=== PATIENT | female | born 1950 | race Caucasian/White ===

== ENCOUNTER 2019-11-27 20:57 | Inpatient (IN) | payer OTHER, BC ==
[2019-11-27 21:57] LABS: EPITHELIAL CELLS FEW /hpf
[2019-11-27] MEDS ORDERED: morphine CARPU-JECT 4 MG/1 ML DISP.SYRIN IVPUSH ONE ×2 (22:00→23:28)
[2019-11-27] MEDS ORDERED: SODIUM CHLORIDE 1,000 ML IV ONE (22:00)
[2019-11-27] MEDS ORDERED: morphine SULFATE 4 MG/ML VIAL ONE ×2 (22:11→23:29)
[2019-11-27 22:22] LABS: BASO % 0.1 % (0-2.0); EOS % 0.2 % (0-4.5); HEMOGLOBIN 13.2 GM/dl (10.7-15.3); LYMPH % 13.4 % (8-40); MCH 33.3 pg (25.7-33.7); MCHC 34.7 g/dl (32.0-36.0); MEAN CELL VOLUME 95.8 fl (80-96); MEAN PLT VOLUME 7.6 fl (7.5-11.1); MONO % 2.2 % (3.8-10.2); NEUT % 84.1 % (42.8-82.8); PLATELET COUNT 203 K/MM3 (134-434); RBC 3.96 M/mm3 (3.60-5.2); RDW 11.3 % (11.6-15.6); WHITE BLOOD COUNT 10.5 K/mm3 (4.0-10.8)
[2019-11-27 22:31] LABS: ALBUMIN 3.2 g/dl (3.4-5.0); BILIRUBIN,TOTAL 0.9 mg/dl (0.2-1); CALCIUM 8.2 mg/dl (8.5-10); CREATININE 0.8 mg/dl (0.55-1.3); POTASSIUM 3.3 mmol/L (3.5-5.1); TOT PROT 6.1 g/dl (6.4-8.2)
--- NOTE | 2019-11-28 01:18 | PDOC ---
Documentation entered by Eliana Mora SCRIBE, acting as scribe for Chandu Reece MD. Chandu Reece MD: This documentation has been prepared by the Abby serrano Adrianna, SCRIBE, under my direction and personally reviewed by me in its entirety. I confirm that the documentation accurately reflects all work, treatment, procedures, and medical decision making performed by me. History of Present Illness - General Chief Complaint: Nausea/Vomiting Stated Complaint: ABD PAIN & NAUSEA/VOMITING Time Seen by Provider: 11/27/19 21:31 History Source: Patient Exam Limitations: No Limitations - History of Present Illness Initial Comments: The patient is a 69 year old female, with a significant PMH of diverticulosis and hypothyroidism, who presents to the ED for evaluation of abdominal pain for 4 days. Patient complains of abdominal pain, which began at the RLQ and is now felt diffusely. She describes her pain as constant, sharp, and an explosion all over. Patient endorses associated diarrhea, abdominal bloating, nausea, and vomit. PAST MEDICAL HISTORY: diverticulosis and hypothyroidism PAST SURGICAL HISTORY: no significant history FAMILY HISTORY: no pertinent history SOCIAL HISTORY: Pt lives with family and is employed. MEDICATIONS: reviewed ALLERGIES: As per nursing notes ROS General: No fevers or chills, no weakness, no weight loss HEENT: No change in vision. No sore throat,. No ear pain CardioVascular: No chest pain or shortness of breath Respiratory:No cough, or wheezing. Gastrointestinal: +Diffuse abdominal pain. +Abdominal bloating. +nausea + vomiting +diarrhea. No constipation, No rectal bleeding Genitourinary: No dysuria, hematuria, or frequency Musculoskeletal: No joint or muscle pain or swelling Neurologic: No headache, vertigo, dizziness or loss of consciousness Psychiatric: nor depression Skin: No rashes or easy bruising Endocrine: no increased thirst or abnormal weight change Allergic: no skin or latex allergy All other systems reviewed and normal Physical Exam: General: Well-nourished well-developed individual, no acute distress HEENT: +Dry mucous membranes. Neck: Supple, no meningeal signs, no lymphadenopathy Eyes: Pupils equal reactive and round, extraocular motion intact Chest: Nontender to palpation Cardiac: +Tachycardic. S1-S2 normal, regular rhythm, no murmurs rubs or gallops Respiratory: Lungs clear to auscultation bilateral Abdomen: +Slightly distended abdomen. +Decreased bowel sounds. +Diffuse tenderness to palpation, with maximum tenderness at the RLQ. +Guarding. + Rebound. Extremities: Warm, dry, no cyanosis, clubbing, or edema Skin: No rashes Neuro: Alert and oriented x3, nonfocal exam, grossly intact, normal gait Psych: Normal mood and affect Past History - Past Medical History Allergies/Adverse Reactions: Allergies Allergy/AdvReac Type Severity Reaction Status Date / Time No Known Allergies Allergy Verified 11/27/19 20:59 Home Medications: Ambulatory Orders Ibandronate Sodium [Boniva] 150 mg PO MONTHLY 11/27/19 Levothyroxine [Synthroid -] 25 mcg PO DAILY 11/27/19 COPD: No Disorders: Yes (DIVERTICULOSIS) Thyroid Disease: Yes (HYPOTHYROID) - Psycho Social/Smoking Cessation Hx Smoking History: Never smoked Hx Alcohol Use: No Drug/Substance Use Hx: No *Physical Exam - Vital Signs Last Vital Signs Temp Pulse Resp BP Pulse Ox 99.1 F 119 H 18 142/87 98 11/27/19 20:59 11/27/19 20:59 11/27/19 20:59 11/27/19 20:59 11/27/19 20:59 ED Treatment Course - LABORATORY CBC & Chemistry Diagram: 11/27/19 22:00 11/27/19 22:00 - ADDITIONAL ORDERS Additional order review: Laboratory Results 11/27/19 11/27/19 11/27/19 22:00 22:00 21:50 Sodium 134 L Potassium 3.3 L Chloride 100 Carbon Dioxide 28 Anion Gap 6 L BUN 13.0 Creatinine 0.8 Est GFR (CKD-EPI)AfAm 87.80 Est GFR (CKD-EPI)NonAf 75.75 Random Glucose 108 H Lactic Acid 1.1 Calcium 8.2 L Total Bilirubin 0.9 AST 14 L ALT 13 Alkaline Phosphatase 66 Total Protein 6.1 L Albumin 3.2 L TSH 5.49 H Urine Color Yellow Urine Appearance Clear Urine pH 6.0 Urine Protein 2+ H Urine Glucose (UA) Negative Urine Ketones 2+ H Urine Blood 2+ H Urine Nitrite Negative Urine Bilirubin 1+ H Urine Urobilinogen 0.2 Ur Leukocyte Esterase Trace H Urine RBC 5-10 Urine WBC 10-20 Ur Transition Epith Cell Few Urine Bacteria Few 11/27/19 22:00 RBC 3.96 MCV 95.8 MCHC 34.7 RDW 11.3 L MPV 7.6 Neutrophils % 84.1 H Lymphocytes % 13.4 Monocytes % 2.2 L Eosinophils % 0.2 Basophils % 0.1 - RADIOLOGY Radiology Studies Ordered: Category Date Time Status ABDOMEN & PELVIS CT WITH CONTR [CT] Stat CT Scan 11/27/19 21:56 Taken - Medications Given in the ED: ED Medications Discontinued Medications Generic Name Dose Route Start Last Admin Trade Name Freq PRN Reason Stop Dose Admin Sodium Chloride 1,000 mls @ 1,000 mls/hr 11/27/19 22:00 11/27/19 22:13 Normal Saline - IV 11/27/19 22:59 1,000 mls/hr .Q1H ONE Administration Morphine Sulfate 4 mg 11/27/19 22:00 11/27/19 22:13 Morphine Injection - IVPUSH 11/27/19 22:01 4 mg ONCE ONE Administration Morphine Sulfate 4 mg 11/27/19 23:28 11/27/19 23:31 Morphine Injection - IVPUSH 11/27/19 23:29 4 mg ONCE ONE Administration Discharge - Discharge Information Problems reviewed: Yes Clinical Impression/Diagnosis: Dehydration Abdominal pain Qualifiers: Abdominal location: generalized Qualified Code(s): R10.84 - Generalized abdominal pain Nausea & vomiting Qualifiers: Vomiting type: unspecified Vomiting Intractability: non-intractable Qualified Code(s): R11.2 - Nausea with vomiting, unspecified Condition: Good - Admission Yes - Follow up/Referral Referrals: Juanpablo Fritz MD [Primary Care Provider] - - Patient Discharge Instructions - Post Discharge Activity
[2019-11-28] MEDS ORDERED: KCL 10 MEQ IVPB 10 MEQ/100 ML INFUS.BAG IVPB SCH (01:45)
[2019-11-28 02:19] VITALS: BMI 26.4
[2019-11-28] MEDS: SODIUM CHLORIDE 1,000 ML IV SCH (02:25)
[2019-11-28] MEDS: LEVOTHYROXINE NA 25 MCG TABLET (FP) PO SCH (06:35)
[2019-11-28] MEDS ORDERED: SODIUM CHLORIDE 500 ML IV STA ×2 (07:04→09:56)
[2019-11-28 08:45] LABS: CALCIUM 7.7 mg/dl (8.5-10); CREATININE 0.7 mg/dl (0.55-1.3); POTASSIUM 3.7 mmol/L (3.5-5.1)
[2019-11-28 08:58] LABS: BASO % 0.2 % (0-2.0); EOS % 0.3 % (0-4.5); HEMATOCRIT 33.4 % (32.4-45.2); HEMOGLOBIN 11.6 GM/dl (10.7-15.3); LYMPH % 10.7 % (8-40); MCH 33.5 pg (25.7-33.7); MCHC 34.7 g/dl (32.0-36.0); MEAN CELL VOLUME 96.6 fl (80-96); MEAN PLT VOLUME 8.4 fl (7.5-11.1); MONO % 4.1 % (3.8-10.2); NEUT % 84.7 % (42.8-82.8); PLATELET COUNT 170 K/MM3 (134-434); RBC 3.46 M/mm3 (3.60-5.2); RDW 11.5 % (11.6-15.6)
[2019-11-28] MEDS ORDERED: HEPARIN NA (PORCINE) 5,000 UNITS/ML 1ML VIAL SQ SCH (10:00)
--- NOTE | 2019-11-28 11:13 | HP ---
CHIEF COMPLAINT: Abdominal pain, vomiting PCP: HISTORY OF PRESENT ILLNESS: 69 year-old female with a PMH significant for hypothyroidism and diverticulosis who presented to the ED for evaluation of abdominal x 3 days. Initially the pain was around the umbilicus and then moved more to the RLQ. She had several episodes of projectile vomiting. She had several episodes of sweats at night. ER course was notable for: (1) (2) (3) Recent Travel: No PAST MEDICAL HISTORY: Hypothyroidism Diverticulosis PAST SURGICAL HISTORY: Social History: Smoking: no Alcohol: no Drugs: no Allergies No Known Allergies Allergy (Verified 11/27/19 20:59) HOME MEDICATIONS: Home Medications Medication Instructions Recorded Ibandronate Sodium [Boniva] 150 mg PO MONTHLY 11/27/19 Levothyroxine [Synthroid -] 25 mcg PO DAILY 11/27/19 REVIEW OF SYSTEMS CONSTITUTIONAL: +sweats Absent: fever, chills, diaphoresis, generalized weakness, malaise, loss of appetite, weight change HEENT: Absent: rhinorrhea, nasal congestion, throat pain, throat swelling, difficulty swallowing, mouth swelling, ear pain, eye pain, visual changes CARDIOVASCULAR: Absent: chest pain, syncope, palpitations, irregular heart rate, lightheadedness , peripheral edema RESPIRATORY: Absent: cough, shortness of breath, dyspnea with exertion, orthopnea, wheezing, stridor, hemoptysis GASTROINTESTINAL: +abdominal pain, vomiting Absent: abdominal distension, diarrhea, constipation, melena, hematochezia GENITOURINARY: Absent: dysuria, frequency, urgency, hesitancy, hematuria, flank pain, genital pain MUSCULOSKELETAL: Absent: myalgia, arthralgia, joint swelling, back pain, neck pain SKIN: Absent: rash, itching, pallor HEMATOLOGIC/IMMUNOLOGIC: Absent: easy bleeding, easy bruising, lymphadenopathy, frequent infections ENDOCRINE: Absent: unexplained weight gain, unexplained weight loss, heat intolerance, cold intolerance NEUROLOGIC: Absent: headache, focal weakness or paresthesias, dizziness, unsteady gait, seizure, mental status changes, bladder or bowel incontinence PSYCHIATRIC: Absent: anxiety, depression, suicidal or homicidal ideation, hallucinations. PHYSICAL EXAMINATION Vital Signs - 24 hr 11/27/19 11/28/19 11/28/19 20:59 01:17 01:22 Temperature 99.1 F 99.3 F 98.6 F Pulse Rate 119 H 99 H Pulse Rate [ 95 H Radial] Respiratory 18 18 17 Rate Blood Pressure 142/87 93/47 L Blood Pressure 103/61 [Arm] O2 Sat by Pulse 98 99 99 Oximetry (%) 11/28/19 11/28/19 11/28/19 02:18 02:54 06:26 Temperature 98.6 F 99.5 F Pulse Rate 99 H 94 H 93 H Pulse Rate [ Radial] Respiratory 17 18 Rate Blood Pressure 93/47 L 100/48 L 96/43 L Blood Pressure [Arm] O2 Sat by Pulse 96 Oximetry (%) 11/28/19 11/28/19 09:00 10:58 Temperature 98.6 F Pulse Rate 85 Pulse Rate [ Radial] Respiratory 18 18 Rate Blood Pressure 97/57 L Blood Pressure [Arm] O2 Sat by Pulse 96 Oximetry (%) GENERAL: Awake, alert, and fully oriented, in mild distress secondary to abdominal pain HEAD: Normal with no signs of trauma. EYES: Pupils equal, round and reactive to light, extraocular movements intact, sclera anicteric, conjunctiva clear. No lid lag. LUNGS: Breath sounds equal, clear to auscultation bilaterally. No wheezes, and no crackles. No accessory muscle use. HEART: Regular rate and rhythm, normal S1 and S2 ABDOMEN: Exquisitely tender RLQ, guarding, no rebound MUSCULOSKELETAL: Normal range of motion at all joints. No bony deformities or tenderness. No CVA tenderness. UPPER EXTREMITIES: 2+ pulses, warm, well-perfused. No cyanosis. No clubbing. No peripheral edema. LOWER EXTREMITIES: 2+ pulses, warm, well-perfused. No calf tenderness. No peripheral edema. NEUROLOGICAL: Cranial nerves II-XII intact. Normal speech. Laboratory Results - last 24 hr 11/27/19 11/27/19 11/27/19 21:50 22:00 22:00 WBC 10.5 RBC 3.96 Hgb 13.2 Hct 38.0 MCV 95.8 MCH 33.3 MCHC 34.7 RDW 11.3 L Plt Count 203 MPV 7.6 Absolute Neuts (auto) 8.9 Neutrophils % 84.1 H Lymphocytes % 13.4 Monocytes % 2.2 L Eosinophils % 0.2 Basophils % 0.1 Sodium 134 L Potassium 3.3 L Chloride 100 Carbon Dioxide 28 Anion Gap 6 L BUN 13.0 Creatinine 0.8 Est GFR (CKD-EPI)AfAm 87.80 Est GFR (CKD-EPI)NonAf 75.75 Random Glucose 108 H Lactic Acid Calcium 8.2 L Total Bilirubin 0.9 AST 14 L ALT 13 Alkaline Phosphatase 66 Total Protein 6.1 L Albumin 3.2 L Total Amylase Lipase TSH 5.49 H Urine Color Yellow Urine Appearance Clear Urine pH 6.0 Urine Protein 2+ H Urine Glucose (UA) Negative Urine Ketones 2+ H Urine Blood 2+ H Urine Nitrite Negative Urine Bilirubin 1+ H Urine Urobilinogen 0.2 Ur Leukocyte Esterase Trace H Urine RBC 5-10 Urine WBC 10-20 Ur Transition Epith Cell Few Urine Bacteria Few 11/27/19 11/28/19 11/28/19 22:00 07:40 07:40 WBC 8.0 RBC 3.46 L Hgb 11.6 Hct 33.4 MCV 96.6 H MCH 33.5 MCHC 34.7 RDW 11.5 L Plt Count 170 MPV 8.4 Absolute Neuts (auto) 6.8 Neutrophils % 84.7 H Lymphocytes % 10.7 Monocytes % 4.1 Eosinophils % 0.3 Basophils % 0.2 Sodium 135 L Potassium 3.7 Chloride 103 Carbon Dioxide 26 Anion Gap 6 L BUN 11.0 Creatinine 0.7 Est GFR (CKD-EPI)AfAm 103.18 Est GFR (CKD-EPI)NonAf 89.03 Random Glucose 112 H Lactic Acid 1.1 Calcium 7.7 L Total Bilirubin AST ALT Alkaline Phosphatase Total Protein Albumin Total Amylase 33 Lipase 58 L TSH Urine Color Urine Appearance Urine pH Urine Protein Urine Glucose (UA) Urine Ketones Urine Blood Urine Nitrite Urine Bilirubin Urine Urobilinogen Ur Leukocyte Esterase Urine RBC Urine WBC Ur Transition Epith Cell Urine Bacteria ASSESSMENT/PLAN 69 year-old female with a PMH significant for hypothyroidism and diverticulitis , admitted for acute appendicitis with abscess formation. Acute appendicitis with abscess formation --11/28 CTAP: acute appendicitis, small appendicolith 5mm, loculated fluid 2.8 x 1.3cm suspicious for abscess --surgery consult pending --discussed with Dr. Mortensen, communication analyst for IR; asked to be read the measurements over the phone, said collection is about 1 inch and therefore too small to drain; will have Dr. Keenan assess on Saturday morning --afebrile, no leukocytosis, start empiric Zosyn, ID to follow --IV fluids, keep NPO --IV Tylenol, morphine for pain Hypothyroidism --contiue levothyroxine DVT prophylaxis: SCDs Full code. Visit type - Emergency Visit Emergency Visit: Yes ED Registration Date: 11/28/19 Care time: The patient presented to the Emergency Department on the above date and was hospitalized for further evaluation of their emergent condition. - New Patient This patient is new to me today: Yes Date on this admission: 11/29/19 - Critical Care Critical Care patient: No
[2019-11-28] MEDS ORDERED: PIPERACILLIN/TAZOBACTAM 3.375 GM VIAL IVPB ONE (13:39)
[2019-11-28] MEDS ORDERED: DEXTROSE 5%-WATER - 50 ML IVPB ONE (13:39)
[2019-11-28] MEDS ORDERED: PIPERACILLIN/TAZOB 3.375 GM 3.375 GM in DEXTROSE 5%-WATER - 50 ML IVPB SCH ×2 (13:45→22:00)
--- NOTE | 2019-11-28 14:10 | CON.ID ---
Consult Consult Specialty:: infectious - Alcohol/Substance Use Hx Alcohol Use: No - Smoking History Smoking history: Never smoked Home Medications - Allergies Allergies/Adverse Reactions: Allergies Allergy/AdvReac Type Severity Reaction Status Date / Time No Known Allergies Allergy Verified 11/27/19 20:59 - Home Medications Home Medications: Ambulatory Orders Ibandronate Sodium [Boniva] 150 mg PO MONTHLY 11/27/19 Levothyroxine [Synthroid -] 25 mcg PO DAILY 11/27/19 Physical Exam Vital Signs: Vital Signs Temperature 98.6 F 11/28/19 14:05 Pulse Rate 88 11/28/19 14:05 Respiratory Rate 16 11/28/19 14:05 Blood Pressure 109/52 L 11/28/19 14:05 O2 Sat by Pulse Oximetry (%) 99 11/28/19 14:05 Labs: CBC, BMP 11/28/19 07:40 11/28/19 07:40
[2019-11-28] MEDS: ACETAMINOPHEN 1000 MG/100 ML VIAL (NON FORMULARY) IVPB PRN (14:50)
[2019-11-28] MEDS ORDERED: MORPHINE SULFATE 2 MG/ML VIAL IVPUSH PRN (16:06)
[2019-11-28] MEDS ORDERED: PIPERACILLIN/TAZOB 4.5 GM 4.5 GM in DEXTROSE 5%-WATER 100 ML IVPB SCH (18:00)
[2019-11-28] MEDS ORDERED: DEXTROSE 5%-WATER 100 ML IVPB ONE (21:41)
[2019-11-28] MEDS ORDERED: PIPERACILLIN/TAZOBACTAM 4.5 GM VIAL IVPB ONE (21:42)
[2019-11-28] MEDS: PIPERACILLIN/TAZOB 4.5 GM 4.5 GM in DEXTROSE 5%-WATER 100 ML IVPB SCH (21:46)
[2019-11-28] MEDS: morphine CARPU-JECT 2 MG/1 ML DISP.SYRIN IVPUSH PRN (21:57)
[2019-11-29] MEDS ORDERED: DEXTROSE 5%-WATER 100 ML IVPB ONE ×3 (01:23→16:49)
[2019-11-29] MEDS ORDERED: PIPERACILLIN/TAZOBACTAM 4.5 GM VIAL IVPB ONE ×3 (01:23→16:49)
[2019-11-29] MEDS: PIPERACILLIN/TAZOB 4.5 GM 4.5 GM in DEXTROSE 5%-WATER 100 ML IVPB SCH ×3 (01:27→18:19)
[2019-11-29] MEDS: SODIUM CHLORIDE 1,000 ML IV SCH ×2 (01:28→17:02)
[2019-11-29] MEDS: LEVOTHYROXINE NA 25 MCG TABLET (FP) PO SCH (06:38)
[2019-11-29] MEDS: ACETAMINOPHEN 1000 MG/100 ML VIAL (NON FORMULARY) IVPB PRN (06:48)
[2019-11-29] MEDS: morphine CARPU-JECT 2 MG/1 ML DISP.SYRIN IVPUSH PRN ×3 (08:25→14:36)
[2019-11-29 08:57] LABS: BASO % 0.3 % (0-2.0); HEMOGLOBIN 11.6 GM/dl (10.7-15.3); LYMPH % 15.2 % (8-40); MCH 33.1 pg (25.7-33.7); MCHC 34.1 g/dl (32.0-36.0); MEAN CELL VOLUME 97.2 fl (80-96); MEAN PLT VOLUME 8.6 fl (7.5-11.1); NEUT % 78.5 % (42.8-82.8); PLATELET COUNT 205 K/MM3 (134-434); RDW 11.5 % (11.6-15.6); WHITE BLOOD COUNT 7.6 K/mm3 (4.0-10.8)
[2019-11-29 09:14] LABS: ALBUMIN 2.5 g/dl (3.4-5.0); BILIRUBIN,TOTAL 0.8 mg/dl (0.2-1); CALCIUM 8.1 mg/dl (8.5-10); CREATININE 0.8 mg/dl (0.55-1.3); POTASSIUM 3.5 mmol/L (3.5-5.1); TOT PROT 5.3 g/dl (6.4-8.2)
--- NOTE | 2019-11-29 10:19 | CONSULT ---
- Consultation REQUESTING PROVIDER: Marianna Cruz BELL HOLE DIGGER CONSULT REQUEST: We have been asked to surgically evaluate this patient for appendicitis w/an abscess PCP:Lacy Cruz HISTORY OF PRESENT ILLNESS:AKUA who is a 69 y/o female who presented to the [facility] ED 11/27/2019 w/ 72 hours of generalized to RLQ abdominal pain w/ associated nausea and vomiting; she never had this before; she has no other GI/ /[employer] c/o's; she has had colonoscopy w/in the last 5 years; pain was initially at the umbilicus and sharp and worse w/moving around and less w/lying still; it now seems to be less; she has some anorexia but is thirsty; there is no radiation of the pain from the RLQ; she has NOC. PMHx: osteoporosis/thyroid disease PSHx: none Home Medications Medication Instructions Recorded Ibandronate Sodium [Boniva] 150 mg PO MONTHLY 11/27/19 Levothyroxine [Synthroid -] 25 mcg PO DAILY 11/27/19 Allergies Allergy/AdvReac Type Severity Reaction Status Date / Time No Known Allergies Allergy Verified 11/27/19 20:59 REVIEW OF SYSTEMS: CONSTITUTIONAL: Absent: fever, chills, diaphoresis, generalized weakness, malaise, loss of appetite, weight change CARDIOVASCULAR: Absent: chest pain, syncope, palpitations, irregular heart rate, lightheadedness , peripheral edema RESPIRATORY: Absent: cough, shortness of breath, dyspnea with exertion, wheezing, stridor, hemoptysis GASTROINTESTINAL: Present: abdominal pain, abdominal distension, nausea, vomiting, Absent: diarrhea, constipation, melena, hematochezia GENITOURINARY: Absent: dysuria, frequency, urgency, hesitancy, hematuria, flank pain, genital pain MUSCULOSKELETAL: Absent: myalgia, arthralgia, joint swelling, back pain, neck pain SKIN: Absent: rash, itching, pallor HEMATOLOGIC/IMMUNOLOGIC: Absent: easy bleeding, easy bruising, lymphadenopathy NEUROLOGIC: Absent: headache, focal weakness, paresthesias, dizziness, unsteady gait, seizure, mental status changes, bladder or bowel incontinence PSYCHIATRIC: Absent: anxiety, depression, suicidal or homicidal ideation, hallucinations. PHYSICAL EXAM: GENERAL: Awake, alert, and fully oriented, in no acute distress. HEAD: Normal with no signs of trauma. EYES: PERRL, sclera anicteric, conjunctiva clear. NECK: Normal ROM, supple without lymphadenopathy, JVD, or masses. ABDOMEN: Soft, tender RLQ w/guarding; no rebound, not distended, absent bowel sound, no masses. No organomegaly. Rovsings/psoas and obturator signs are present; there is no evidence of an acute surgical abdomen. MUSCULOSKELETAL: Normal ROM at all joints. No bony deformities or tenderness. No CVA tenderness. UPPER EXTREMITIES: 2+ pulses, warm, well-perfused. No cyanosis. Cap refill <2 seconds. No peripheral edema. LOWER EXTREMITIES: 2+ pulses, warm, well-perfused. No calf tenderness. No peripheral edema. NEUROLOGICAL: Normal speech, gait not observed. PSYCH: Cooperative. Good eye contact. Appropriate mood and affect. SKIN: Warm, dry, normal turgor, no rashes or lesions noted. Vital Signs Temperature 97.9 F 11/29/19 04:00 Pulse Rate 77 11/29/19 06:44 Respiratory Rate 16 11/29/19 04:00 Blood Pressure 97/55 L 11/29/19 06:44 O2 Sat by Pulse Oximetry (%) 95 11/29/19 04:00 Lab Results WBC 7.6 K/mm3 (4.0-10.8) 11/29/19 06:00 RBC 3.50 M/mm3 (3.60-5.2) L 11/29/19 06:00 Hgb 11.6 GM/dl (10.7-15.3) 11/29/19 06:00 Hct 34.0 % (32.4-45.2) 11/29/19 06:00 MCV 97.2 fl (80-96) H 11/29/19 06:00 MCHC 34.1 g/dl (32.0-36.0) 11/29/19 06:00 RDW 11.5 % (11.6-15.6) L 11/29/19 06:00 Plt Count 205 K/MM3 (134-434) 11/29/19 06:00 Sodium 140 mmol/L (136-145) 11/29/19 06:00 Potassium 3.5 mmol/L (3.5-5.1) 11/29/19 06:00 Chloride 107 mmol/L (98-107) 11/29/19 06:00 Carbon Dioxide 23 mmol/L (21-32) 11/29/19 06:00 Anion Gap 10 MMOL/L (8-16) 11/29/19 06:00 BUN 10.0 mg/dl (7-18) 11/29/19 06:00 Creatinine 0.8 mg/dl (0.55-1.3) 11/29/19 06:00 Random Glucose 86 mg/dl (74-106) 11/29/19 06:00 Calcium 8.1 mg/dl (8.5-10) L 11/29/19 06:00 CT scan a/p reviewed and c/w acute appendicitis w/an abscess and fecalith(s). IMP: perforated appendicitis w/abscess. PLAN: NPO/IVF/IVABS/IR evaluation for abscess drainage; will f/u; will need interval appendectomy. Donavon Snowden MD FACS
--- NOTE | 2019-11-29 10:54 | PN ---
Physical Exam: SUBJECTIVE: Patient seen and examined OBJECTIVE: Vital Signs Period Temp Pulse Resp BP Sys/Lezama Pulse Ox Last 24 Hr 97.9 F-98.8 F 77-88 16-20 94-113/48-63 95-99 GENERAL: A&Ox3 LUNGS: Breath sounds equal, clear to auscultation bilaterally. No wheezes, and no crackles. No accessory muscle use. HEART: Regular rate and rhythm, normal S1 and S2 ABDOMEN: Exquisitely tender RLQ, guarding, no rebound MUSCULOSKELETAL: Normal range of motion at all joints. No bony deformities or tenderness. No CVA tenderness. UPPER EXTREMITIES: 2+ pulses, warm, well-perfused. No cyanosis. No clubbing. No peripheral edema. LOWER EXTREMITIES: 2+ pulses, warm, well-perfused. No calf tenderness. No peripheral edema. NEUROLOGICAL: Cranial nerves II-XII intact. Normal speech. Laboratory Results - last 24 hr 11/29/19 11/29/19 06:00 06:00 WBC 7.6 RBC 3.50 L Hgb 11.6 Hct 34.0 MCV 97.2 H MCH 33.1 MCHC 34.1 RDW 11.5 L Plt Count 205 MPV 8.6 Absolute Neuts (auto) 5.9 Neutrophils % 78.5 Lymphocytes % 15.2 Monocytes % 5.0 Eosinophils % 1.0 Basophils % 0.3 Sodium 140 Potassium 3.5 Chloride 107 Carbon Dioxide 23 Anion Gap 10 BUN 10.0 Creatinine 0.8 Est GFR (CKD-EPI)AfAm 87.80 Est GFR (CKD-EPI)NonAf 75.75 Random Glucose 86 Calcium 8.1 L Magnesium 2.0 Total Bilirubin 0.8 AST 40 H ALT 28 Alkaline Phosphatase 91 D Total Protein 5.3 L Albumin 2.5 L Active Medications Generic Name Dose Route Start Last Admin Trade Name Freq PRN Reason Stop Dose Admin Acetaminophen 1,000 mg 11/28/19 14:26 11/29/19 06:48 Ofirmev Injection - IVPB 11/29/19 14:26 1,000 mg Q6H PRN Administration PAIN LEVEL 1-5 Sodium Chloride 1,000 mls @ 75 mls/hr 11/28/19 01:30 11/29/19 01:28 Normal Saline - IV 75 mls/hr ASDIR NEHA Administration Piperacillin Sod/Tazobactam 100 mls @ 200 mls/hr 11/28/19 22:00 11/29/19 10: 25 Sod 4.5 gm/ Dextrose IVPB 200 mls/hr Q8H-IV NEHA Administration Protocol Levothyroxine Sodium 37.5 mcg 11/28/19 07:00 11/29/19 06:38 Synthroid - PO 37.5 mcg DAILY@0700 NEHA Administration Morphine Sulfate 2 mg 11/28/19 21:48 11/29/19 08:25 Morphine Injection - IVPUSH 2 mg Q4H PRN Administration PAIN LEVEL 6-10 ASSESSMENT/PLAN: 69 year-old female with a PMH significant for hypothyroidism and diverticulitis , admitted for acute appendicitis with abscess formation. Acute appendicitis with abscess formation --11/28 CTAP: acute appendicitis, small appendicolith 5mm, loculated fluid 2.8 x 1.3cm suspicious for abscess --surgery Dr. Snowden following --on 11/[address] Mortensen, palliative care nurse practitioner for IR; asked to be read the measurements over the phone, said collection is about 1 inch and therefore too small to drain; will have Dr. Keenan assess tomorrow morning --afebrile, no leukocytosis, continue empiric Zosyn, ID Bobde following --IV fluids, keep NPO per surgery --IV Tylenol, morphine for pain Hypothyroidism --contiue levothyroxine DVT prophylaxis: SCDs Dispo: awaiting transfer to [facility] Full code. Visit type - Emergency Visit Emergency Visit: Yes ED Registration Date: 11/28/19 Care time: The patient presented to the Emergency Department on the above date and was hospitalized for further evaluation of their emergent condition. - New Patient This patient is new to me today: No - Critical Care Critical Care patient: No
--- NOTE | 2019-11-29 12:25 | PN ---
Progress Note (short form) - Note Progress Note: Discussed case with Windy Cruz MERCHANDISING REPRESENTATIVE; patient being transferred to [facility] for IR evaluation to see if the appendicitis seen on CT is drainable. Discussed earlier with Dr. Snowden. Will be placed on MERCHANDISING REPRESENTATIVE service in AM. Please reach out to my residents for additional inquiries for the time being as patient arrives here (Dr. Simpson, Dr. De Dios). Thank you. Visit type - Emergency Visit Emergency Visit: Yes ED Registration Date: 11/28/19 Care time: The patient presented to the Emergency Department on the above date and was hospitalized for further evaluation of their emergent condition. - New Patient This patient is new to me today: No - Critical Care Critical Care patient: No
[2019-11-29] MEDS: MORPHINE SULFATE 2 MG/ML VIAL IVPUSH PRN (18:35)
[2019-11-30] MEDS ORDERED: PIPERACILLIN/TAZOBACTAM 4.5 GM VIAL IVPB ONE ×3 (01:22→18:18)
[2019-11-30] MEDS ORDERED: DEXTROSE 5%-WATER 100 ML IVPB ONE ×3 (01:22→18:18)
[2019-11-30] MEDS: PIPERACILLIN/TAZOB 4.5 GM 4.5 GM in DEXTROSE 5%-WATER 100 ML IVPB SCH ×4 (01:31→18:39)
[2019-11-30] MEDS: MORPHINE SULFATE 2 MG/ML VIAL IVPUSH PRN ×4 (01:31→18:34)
[2019-11-30] MEDS: LEVOTHYROXINE NA 25 MCG TABLET (FP) PO SCH (06:02)
[2019-11-30] MEDS: SODIUM CHLORIDE 1,000 ML IV SCH ×2 (10:39→15:38)
[2019-11-30 11:28] LABS: INR 1.1 (0.83-1.09)
--- NOTE | 2019-11-30 12:21 | PN ---
Physical Exam: SUBJECTIVE: Patient seen and examined at the bedside. questions answered. reports right lower abdominal pain/tenderness. OBJECTIVE: Received a microblog that patient will not have a drain placed by IR. length of antibiotic therapy to be determined by ID. ----- Patient is a 69 year-old female with a past medical history of hypothyroidism and diverticulosis who presented to the ED for evaluation of abdominal x 3 days. patient was found to have acute appendicitis on CT scan with a possible small abscess formation. Vital Signs Period Temp Pulse Resp BP Sys/Lezama Pulse Ox Last 24 Hr 98.9 F-99.9 F 76-88 16-20 113-151/55-80 95-98 GENERAL: The patient is awake, alert, and fully oriented, in no acute distress. HEAD: Normal with no signs of trauma. EYES: PERRL, extraocular movements intact, sclera anicteric, conjunctiva clear. No ptosis. ENT: Ears normal, nares patent, oropharynx clear without exudates, moist mucous membranes. NECK: Trachea midline, full range of motion, supple. LUNGS: Breath sounds equal, clear to auscultation bilaterally, no wheezes, no crackles, no accessory muscle use. HEART: Regular rate and rhythm ABDOMEN: tender to right lower quadrant, abdomen soft, non distended EXTREMITIES: no edema. NEUROLOGICAL: Normal speech, gait not observed. Laboratory Results - last 24 hr 11/30/19 11:05 PT with INR 13.00 INR 1.10 H Active Medications Generic Name Dose Route Start Last Admin Trade Name Freq PRN Reason Stop Dose Admin Sodium Chloride 1,000 mls @ 75 mls/hr 11/29/19 15:38 11/30/19 10:39 Normal Saline - IV 75 mls/hr ASDIR NEHA Administration Piperacillin Sod/Tazobactam 100 mls @ 200 mls/hr 11/29/19 18:00 11/30/19 10: 39 Sod 4.5 gm/ Dextrose IVPB 200 mls/hr Q8H-IV NEHA Administration Protocol Levothyroxine Sodium 37.5 mcg 11/30/19 07:00 11/30/19 06:02 Synthroid - PO Not Given DAILY@0700 NEHA Morphine Sulfate 2 mg 11/29/19 15:38 11/30/19 06:30 Morphine Sulfate IVPUSH 2 mg Q4H PRN Administration PAIN LEVEL 6-10 ASSESSMENT/PLAN: Problem List - Problems (1) Appendicitis with abscess Assessment/Plan: Per Dr. Snowden, patient with acute appendicitis with an abscess and fecalith perforated appencdicitis with abscess. Per IR, no drainable abscess seen on IV Zosyn per ID. Maintain NPO, continue IVF. Code(s): K35.33 - ACUTE APPENDICITIS WITH PERF AND LOC PERITONITIS, WITH ABSCS (2) Abdominal pain Assessment/Plan: abdominal tenderness isolated to right lower quadrant Code(s): R10.9 - UNSPECIFIED ABDOMINAL PAIN Qualifiers: Abdominal location: generalized Qualified Code(s): R10.84 - Generalized abdominal pain (3) Dehydration Assessment/Plan: on ivf Code(s): E86.0 - DEHYDRATION (4) Nausea & vomiting Assessment/Plan: resolved Code(s): R11.2 - NAUSEA WITH VOMITING, UNSPECIFIED Qualifiers: Vomiting type: unspecified Vomiting Intractability: non-intractable Qualified Code(s): R11.2 - Nausea with vomiting, unspecified (5) DVT prophylaxis Assessment/Plan: heparin Code(s): Z29.9 - ENCOUNTER FOR PROPHYLACTIC MEASURES, UNSPECIFIED Visit type - Emergency Visit Emergency Visit: Yes ED Registration Date: 11/28/19 Care time: The patient presented to the Emergency Department on the above date and was hospitalized for further evaluation of their emergent condition. - New Patient This patient is new to me today: Yes Date on this admission: 11/30/19 - Critical Care Critical Care patient: No - Discharge Referral Referred to [facility] Med P.C.: No
[2019-11-30 13:21] LABS: BASO % 0.6 % (0-2.0); EOS % 1.3 % (0-4.5); HEMATOCRIT 35.7 % (32.4-45.2); HEMOGLOBIN 12.3 GM/dL (10.7-15.3); LYMPH % 18.1 % (8-40); MCH 33.2 pg (25.7-33.7); MCHC 34.5 g/dl (32.0-36.0); MEAN CELL VOLUME 96.2 fl (80-96); MEAN PLT VOLUME 8.3 fl (7.5-11.1); MONO % 5.5 % (3.8-10.2); NEUT % 74.5 % (42.8-82.8); PLATELET COUNT 250 K/MM3 (134-434); RBC 3.71 M/mm3 (3.60-5.2); RDW 12.4 % (11.6-15.6); WHITE BLOOD COUNT 8.3 K/mm3 (4.0-10.0)
[2019-11-30 14:00] LABS: ALBUMIN 2.6 g/dl (3.4-5.0); BILIRUBIN,TOTAL 0.8 mg/dL (0.2-1); BLOOD UREA NITROGEN 10.7 mg/dL (7-18); CALCIUM 8.5 mg/dL (8.5-10.1); CREATININE 0.7 mg/dL (0.55-1.3); POTASSIUM 3.4 mmol/L (3.5-5.1); TOT PROT 5.9 g/dl (6.4-8.2)
[2019-11-30] MEDS ORDERED: KCL 10 MEQ IVPB 10 MEQ/100 ML INFUS.BAG IVPB SCH (14:15)
--- NOTE | 2019-11-30 14:27 | PN ---
Progress Note (short form) - Note Progress Note: General Surgery: Pt states that she is passing flatus. No BM since when she had diarrhea. States that she has pain to RLQ with movement. Vital Signs Period Temp Pulse Resp BP Sys/Lezama Pulse Ox Last 24 Hr 98.9 F-99.9 F 76-88 18-20 117-151/55-80 98 GEN: A&0X3, NAD ABD: soft, RLQ tenderness/ rebound with palpation CBC, BMP 11/30/19 12:40 11/30/19 12:40 CT Scan: 2.8 by 1.3 cm fluid collection/abscess Ap: 69 yo female with perforated appendix, small collection Collection non amenable to drainage in IR Continue NPO/ IV fluids IV antibiotics D/w Dr. Snowden, surgery to follow the patient
--- NOTE | 2019-11-30 16:30 | PN ---
Progress Note (short form) - Note Progress Note: Attending Surgeon c/o RLQ pain VSS AF Tmax. 99.9 abdo-soft; localized RLQ tenderness only WBC-normal IMP: appendicitis w/abscess PLAN: Continue present tx.; collection is not amenable to IRD after review br Dr. Shlomo Snowden MD FACS
[2019-11-30] MEDS ORDERED: ACETAMINOPHEN 1000 MG/100 ML VIAL (NON FORMULARY) IVPB ONE (21:02)
[2019-11-30] MEDS: HEPARIN NA (PORCINE) 5,000 UNITS/ML 1ML VIAL SQ SCH (21:31)
[2019-12-01] MEDS: MORPHINE SULFATE 2 MG/ML VIAL IVPUSH PRN ×2 (00:59→06:24)
[2019-12-01] MEDS ORDERED: PIPERACILLIN/TAZOBACTAM 4.5 GM VIAL IVPB ONE ×3 (01:03→17:58)
[2019-12-01] MEDS ORDERED: DEXTROSE 5%-WATER 100 ML IVPB ONE ×3 (01:04→17:58)
[2019-12-01] MEDS: PIPERACILLIN/TAZOB 4.5 GM 4.5 GM in DEXTROSE 5%-WATER 100 ML IVPB SCH ×3 (01:05→18:01)
[2019-12-01] MEDS: LEVOTHYROXINE NA 25 MCG TABLET (FP) PO SCH (06:20)
--- NOTE | 2019-12-01 08:37 | PN ---
Progress Note (short form) - Note Progress Note: General Surgery: Pt states that she is passing flatus. Still having RLQ pain which is relieved by medication. Vital Signs Period Temp Pulse Resp BP Sys/Lezama Pulse Ox Last 24 Hr 96.8 F-100.5 F 75-90 18-20 119-133/51-71 98 GEN: A&0X3, NAD ABD: soft, RLQ tenderness/ rebound with palpation CBC, BMP 12/01/19 09:40 12/01/19 08:30 Ap: 69 yo female with perforated appendix, small collection Continue NPO/ IV fluids. IV antibiotics D/w Dr. Snowden, surgery to follow the patient
[2019-12-01 09:31] LABS: ALBUMIN 2.4 g/dl (3.4-5.0); BILIRUBIN,TOTAL 0.8 mg/dL (0.2-1); BLOOD UREA NITROGEN 9.6 mg/dL (7-18); CALCIUM 8.4 mg/dL (8.5-10.1); CREATININE 0.6 mg/dL (0.55-1.3); MAGNESIUM 1.8 mg/dL (1.8-2.4); POTASSIUM 3.9 mmol/L (3.5-5.1); TOT PROT 5.8 g/dl (6.4-8.2)
[2019-12-01 10:06] LABS: BASO % 0.6 % (0-2.0); HEMATOCRIT 35.2 % (32.4-45.2); HEMOGLOBIN 12.1 GM/dL (10.7-15.3); LYMPH % 15.9 % (8-40); MCH 33.1 pg (25.7-33.7); MCHC 34.4 g/dl (32.0-36.0); MEAN CELL VOLUME 96.2 fl (80-96); MEAN PLT VOLUME 8.1 fl (7.5-11.1); NEUT % 75.5 % (42.8-82.8); PLATELET COUNT 302 K/MM3 (134-434); RBC 3.65 M/mm3 (3.60-5.2); RDW 12.4 % (11.6-15.6); WHITE BLOOD COUNT 9.9 K/mm3 (4.0-10.0)
--- NOTE | 2019-12-01 10:43 | PN ---
Physical Exam: SUBJECTIVE: Patient seen and examined at the bedside. feels well today, wants to eat. denies any further abdominal pain. OBJECTIVE: Patient is a 69 year-old female with a past medical history of hypothyroidism and diverticulosis who presented to the ED for evaluation of abdominal x 3 days. patient was found to have acute appendicitis on CT scan with a possible small abscess formation. She was evaluated by IR and no drain was recommended at this time. She remains NPO per surgery. Vital Signs Period Temp Pulse Resp BP Sys/Lezama Pulse Ox Last 24 Hr 96.8 F-100.5 F 75-90 18-20 119-133/51-71 98 GENERAL: The patient is awake, alert, and fully oriented, in no acute distress. HEAD: Normal with no signs of trauma. EYES: PERRL, extraocular movements intact, sclera anicteric, conjunctiva clear. No ptosis. ENT: Ears normal, nares patent, oropharynx clear without exudates, moist mucous membranes. NECK: Trachea midline, full range of motion, supple. LUNGS: Breath sounds equal, clear to auscultation bilaterally, no wheezes, no crackles, no accessory muscle use. HEART: Regular rate and rhythm ABDOMEN: non-tender to right lower quadrant, abdomen soft, non distended EXTREMITIES: no edema. NEUROLOGICAL: Normal speech, gait not observed. Laboratory Results - last 24 hr 11/30/19 11/30/19 11/30/19 11:05 12:40 12:40 WBC 8.3 Corrected WBC (auto) RBC 3.71 Hgb 12.3 Hct 35.7 MCV 96.2 H MCH 33.2 MCHC 34.5 RDW 12.4 Plt Count 250 MPV 8.3 Absolute Neuts (auto) 6.2 Neutrophils % 74.5 Lymphocytes % 18.1 Monocytes % 5.5 Eosinophils % 1.3 Basophils % 0.6 Nucleated RBC % 0 Platelet Estimate Platelet Comment PT with INR 13.00 INR 1.10 H Sodium 141 Potassium 3.4 L Chloride 108 H Carbon Dioxide 24 Anion Gap 10 BUN 10.7 Creatinine 0.7 Est GFR (CKD-EPI)AfAm 103.18 Est GFR (CKD-EPI)NonAf 89.03 Random Glucose 77 Calcium 8.5 Magnesium 2.0 Total Bilirubin 0.8 AST 15 ALT 22 Alkaline Phosphatase 100 Total Protein 5.9 L Albumin 2.6 L 12/01/19 12/01/19 12/01/19 08:30 08:30 09:40 WBC Cancelled 9.9 Corrected WBC (auto) Cancelled RBC Cancelled 3.65 Hgb Cancelled 12.1 Hct Cancelled 35.2 MCV Cancelled 96.2 H MCH Cancelled 33.1 MCHC Cancelled 34.4 RDW Cancelled 12.4 Plt Count Cancelled 302 D MPV Cancelled 8.1 Absolute Neuts (auto) Cancelled 7.5 Neutrophils % Cancelled 75.5 Lymphocytes % Cancelled 15.9 Monocytes % Cancelled 7.0 Eosinophils % Cancelled 1.0 Basophils % Cancelled 0.6 Nucleated RBC % Cancelled 0 Platelet Estimate Cancelled Platelet Comment Cancelled PT with INR INR Sodium 140 Potassium 3.9 Chloride 109 H Carbon Dioxide 18 L Anion Gap 13 BUN 9.6 Creatinine 0.6 Est GFR (CKD-EPI)AfAm 108.55 Est GFR (CKD-EPI)NonAf 93.66 Random Glucose 63 L Calcium 8.4 L Magnesium 1.8 Total Bilirubin 0.8 AST 24 ALT 18 Alkaline Phosphatase 97 Total Protein 5.8 L Albumin 2.4 L Active Medications Generic Name Dose Route Start Last Admin Trade Name Freq PRN Reason Stop Dose Admin Heparin Sodium (Porcine) 5,000 unit 11/30/19 22:00 11/30/19 21:31 Heparin - SQ 5,000 unit BID NEHA Administration Sodium Chloride 1,000 mls @ 75 mls/hr 11/29/19 15:38 11/30/19 15:38 Normal Saline - IV Not Given ASDIR NEHA Piperacillin Sod/Tazobactam 100 mls @ 200 mls/hr 11/29/19 18:00 12/01/19 01: 05 Sod 4.5 gm/ Dextrose IVPB 200 mls/hr Q8H-IV NEHA Administration Protocol Levothyroxine Sodium 37.5 mcg 11/30/19 07:00 12/01/19 06:20 Synthroid - PO Not Given DAILY@0700 NEHA Morphine Sulfate 2 mg 11/29/19 15:38 12/01/19 06:24 Morphine Sulfate IVPUSH 2 mg Q4H PRN Administration PAIN LEVEL 6-10 ASSESSMENT/PLAN: Problem List - Problems (1) Appendicitis with abscess Assessment/Plan: Patient with acute appendicitis with an abscess and fecalith/perforated appencdicitis with abscess. Per IR, no drainable abscess seen on IV Zosyn per ID. Maintain NPO, advance diet per surgery. continue IVF. Code(s): K35.33 - ACUTE APPENDICITIS WITH PERF AND LOC PERITONITIS, WITH ABSCS (2) Abdominal pain Assessment/Plan: abdominal resolved Code(s): R10.9 - UNSPECIFIED ABDOMINAL PAIN Qualifiers: Abdominal location: generalized Qualified Code(s): R10.84 - Generalized abdominal pain (3) Dehydration Assessment/Plan: on ivf Code(s): E86.0 - DEHYDRATION (4) Nausea & vomiting Assessment/Plan: resolved Code(s): R11.2 - NAUSEA WITH VOMITING, UNSPECIFIED Qualifiers: Vomiting type: unspecified Vomiting Intractability: non-intractable Qualified Code(s): R11.2 - Nausea with vomiting, unspecified (5) DVT prophylaxis Assessment/Plan: heparin Code(s): Z29.9 - ENCOUNTER FOR PROPHYLACTIC MEASURES, UNSPECIFIED Visit type - Emergency Visit Emergency Visit: Yes ED Registration Date: 11/28/19 Care time: The patient presented to the Emergency Department on the above date and was hospitalized for further evaluation of their emergent condition. - New Patient This patient is new to me today: No - Critical Care Critical Care patient: No - Discharge Referral Referred to [facility] Med P.C.: No
[2019-12-01] MEDS: HEPARIN NA (PORCINE) 5,000 UNITS/ML 1ML VIAL SQ SCH ×2 (11:04→21:49)
[2019-12-01] MEDS: SODIUM CHLORIDE 1,000 ML IV SCH ×2 (15:38→21:54)
[2019-12-02] MEDS ORDERED: PIPERACILLIN/TAZOBACTAM 4.5 GM VIAL IVPB ONE ×3 (01:15→16:41)
[2019-12-02] MEDS ORDERED: DEXTROSE 5%-WATER 100 ML IVPB ONE ×3 (01:15→16:41)
[2019-12-02] MEDS: PIPERACILLIN/TAZOB 4.5 GM 4.5 GM in DEXTROSE 5%-WATER 100 ML IVPB SCH ×3 (01:20→17:34)
[2019-12-02] MEDS: LEVOTHYROXINE NA 25 MCG TABLET (FP) PO SCH (06:02)
[2019-12-02 10:40] LABS: BASO % 0.3 % (0-2.0); EOS % 0.9 % (0-4.5); HEMATOCRIT 34.5 % (32.4-45.2); HEMOGLOBIN 11.9 GM/dL (10.7-15.3); LYMPH % 16.3 % (8-40); MCH 32.7 pg (25.7-33.7); MCHC 34.6 g/dl (32.0-36.0); MEAN CELL VOLUME 94.6 fl (80-96); MEAN PLT VOLUME 8.2 fl (7.5-11.1); MONO % 6.1 % (3.8-10.2); NEUT % 76.4 % (42.8-82.8); PLATELET COUNT 294 K/MM3 (134-434); RBC 3.65 M/mm3 (3.60-5.2); RDW 12.4 % (11.6-15.6); WHITE BLOOD COUNT 8.8 K/mm3 (4.0-10.0)
[2019-12-02] MEDS: HEPARIN NA (PORCINE) 5,000 UNITS/ML 1ML VIAL SQ SCH ×2 (10:41→21:15)
[2019-12-02 11:06] LABS: ALBUMIN 2.6 g/dl (3.4-5.0); BILIRUBIN,TOTAL 0.8 mg/dL (0.2-1); CALCIUM 8.8 mg/dL (8.5-10.1); CREATININE 0.7 mg/dL (0.55-1.3); MAGNESIUM 1.8 mg/dL (1.8-2.4); POTASSIUM 3.4 mmol/L (3.5-5.1); TOT PROT 6.2 g/dl (6.4-8.2)
--- NOTE | 2019-12-02 11:17 | PN ---
Progress Note (short form) - Note Progress Note: General Surgery: Pt states that she is passing flatus and had a BM. Feels much better today. Vital Signs Period Temp Pulse Resp BP Sys/Lezama Pulse Ox Last 24 Hr 96.8 F-100.5 F 75-90 18-20 119-133/51-71 98 GEN: A&0X3, NAD ABD: soft, non-distended, mild RLQ pain to palpation CBC, BMP 12/02/19 09:53 12/02/19 09:53 Ap: 69 yo female with perforated appendix, small collection May begin clears this am, plan for repeat CT scan prior to discharge /saturday D/w Dr. Snowden, surgery to follow the patient
[2019-12-02] MEDS: SODIUM CHLORIDE 1,000 ML IV SCH ×2 (13:12→17:33)
[2019-12-02] MEDS ORDERED: POTASSIUM CHLORIDE TABS 20 MEQ TABLET.ER (FP) PO ONE (14:40)
--- NOTE | 2019-12-02 16:02 | PN ---
Physical Exam: SUBJECTIVE: Patient seen and examined at the bedside. reports two loose bms today, denies watery diarrhea. tolerating clears. no further abdominal pain. OBJECTIVE: Patient is a 69 year-old female with a past medical history of hypothyroidism and diverticulosis who presented to the ED for evaluation of abdominal x 3 days. patient was found to have acute appendicitis on CT scan with a possible small abscess formation. She was evaluated by IR and no drain was recommended at this time. Patient followed by surgery and currently tolerating a clear liquid diet. Vital Signs Period Temp Pulse Resp BP Sys/Lezama Pulse Ox Last 24 Hr 98.5 F-99.5 F 77-91 18-18 112-140/56-76 94-97 GENERAL: The patient is awake, alert, and fully oriented, in no acute distress. HEAD: Normal with no signs of trauma. EYES: PERRL, extraocular movements intact, sclera anicteric, conjunctiva clear. No ptosis. ENT: Ears normal, nares patent, oropharynx clear without exudates, moist mucous membranes. NECK: Trachea midline, full range of motion, supple. LUNGS: Breath sounds equal, clear to auscultation bilaterally, no wheezes HEART: Regular rate and rhythm ABDOMEN: abdomen soft, non distended, no further abdominal pain EXTREMITIES: no edema. NEUROLOGICAL: Normal speech, gait not observed. Laboratory Results - last 24 hr 12/02/19 12/02/19 09:53 09:53 WBC 8.8 RBC 3.65 Hgb 11.9 Hct 34.5 MCV 94.6 MCH 32.7 MCHC 34.6 RDW 12.4 Plt Count 294 MPV 8.2 Absolute Neuts (auto) 6.8 Neutrophils % 76.4 Lymphocytes % 16.3 Monocytes % 6.1 Eosinophils % 0.9 Basophils % 0.3 Nucleated RBC % 0 Sodium 140 Potassium 3.4 L Chloride 105 Carbon Dioxide 25 Anion Gap 10 BUN 8.0 Creatinine 0.7 Est GFR (CKD-EPI)AfAm 103.18 Est GFR (CKD-EPI)NonAf 89.03 Random Glucose 170 H Calcium 8.8 Magnesium 1.8 Total Bilirubin 0.8 AST 16 ALT 21 Alkaline Phosphatase 114 Total Protein 6.2 L Albumin 2.6 L Active Medications Generic Name Dose Route Start Last Admin Trade Name Freq PRN Reason Stop Dose Admin Heparin Sodium (Porcine) 5,000 unit 11/30/19 22:00 12/02/19 10:41 Heparin - SQ 5,000 unit BID NEHA Administration Sodium Chloride 1,000 mls @ 75 mls/hr 11/29/19 15:38 12/02/19 13:12 Normal Saline - IV 75 mls/hr ASDIR NEHA Administration Piperacillin Sod/Tazobactam 100 mls @ 200 mls/hr 11/29/19 18:00 12/02/19 10: 42 Sod 4.5 gm/ Dextrose IVPB 200 mls/hr Q8H-IV NEHA Administration Protocol Levothyroxine Sodium 37.5 mcg 11/30/19 07:00 12/02/19 06:02 Synthroid - PO Not Given DAILY@0700 NEHA Morphine Sulfate 2 mg 11/29/19 15:38 12/01/19 06:24 Morphine Sulfate IVPUSH 2 mg Q4H PRN Administration PAIN LEVEL 6-10 ASSESSMENT/PLAN: Problem List - Problems (1) Appendicitis with abscess Assessment/Plan: Patient with acute appendicitis with an abscess and fecalith/perforated appencdicitis with abscess. Per IR, no drainable abscess seen on IV Zosyn per ID. Maintain NPO, advance diet per surgery. continue IVF. Code(s): K35.33 - ACUTE APPENDICITIS WITH PERF AND LOC PERITONITIS, WITH ABSCS (2) Abdominal pain Assessment/Plan: abdominal pain resolved Code(s): R10.9 - UNSPECIFIED ABDOMINAL PAIN Qualifiers: Abdominal location: generalized Qualified Code(s): R10.84 - Generalized abdominal pain (3) Dehydration Assessment/Plan: on clears. d/c ivf Code(s): E86.0 - DEHYDRATION (4) Nausea & vomiting Assessment/Plan: resolved Code(s): R11.2 - NAUSEA WITH VOMITING, UNSPECIFIED Qualifiers: Vomiting type: unspecified Vomiting Intractability: non-intractable Qualified Code(s): R11.2 - Nausea with vomiting, unspecified (5) DVT prophylaxis Assessment/Plan: heparin Code(s): Z29.9 - ENCOUNTER FOR PROPHYLACTIC MEASURES, UNSPECIFIED Visit type - Emergency Visit Emergency Visit: Yes ED Registration Date: 11/28/19 Care time: The patient presented to the Emergency Department on the above date and was hospitalized for further evaluation of their emergent condition. - New Patient This patient is new to me today: No - Critical Care Critical Care patient: No - Discharge Referral Referred to [facility] Med P.C.: No
[2019-12-03] MEDS ORDERED: PIPERACILLIN/TAZOBACTAM 4.5 GM VIAL IVPB ONE ×3 (02:20→18:22)
[2019-12-03] MEDS ORDERED: DEXTROSE 5%-WATER 100 ML IVPB ONE ×3 (02:20→18:22)
[2019-12-03] MEDS: PIPERACILLIN/TAZOB 4.5 GM 4.5 GM in DEXTROSE 5%-WATER 100 ML IVPB SCH ×3 (02:28→18:45)
[2019-12-03] MEDS: LEVOTHYROXINE NA 25 MCG TABLET (FP) PO SCH (06:47)
--- NOTE | 2019-12-03 09:58 | PN ---
Progress Note (short form) - Note Progress Note: General Surgery: Pt states that she is passing flatus and had a BM and this am. Tolerated clears. Vital Signs Period Temp Pulse Resp BP Sys/Lezama Pulse Ox Last 24 Hr 98.1 F-99.0 F 75-90 18-20 117-135/56-77 96-97 GEN: A&0X3, NAD ABD: soft, non-distended, non-tender Ap: 69 yo female with perforated appendix, small collection Continue clears today plan for CT scan tomorrow, ordered by the medical team D/w Dr. Snowden
[2019-12-03] MEDS: HEPARIN NA (PORCINE) 5,000 UNITS/ML 1ML VIAL SQ SCH ×2 (10:18→21:24)
[2019-12-03 10:24] LABS: BASO % 0.5 % (0-2.0); EOS % 1.4 % (0-4.5); HEMATOCRIT 37.6 % (32.4-45.2); HEMOGLOBIN 12.9 GM/dL (10.7-15.3); MCH 32.8 pg (25.7-33.7); MCHC 34.3 g/dl (32.0-36.0); MEAN CELL VOLUME 95.4 fl (80-96); MEAN PLT VOLUME 8.3 fl (7.5-11.1); MONO % 5.4 % (3.8-10.2); NEUT % 73.7 % (42.8-82.8); PLATELET COUNT 381 K/MM3 (134-434); RBC 3.94 M/mm3 (3.60-5.2); RDW 12.6 % (11.6-15.6); WHITE BLOOD COUNT 8.3 K/mm3 (4.0-10.0)
[2019-12-03 10:49] LABS: ALBUMIN 2.8 g/dl (3.4-5.0); BILIRUBIN,TOTAL 0.4 mg/dL (0.2-1); BLOOD UREA NITROGEN 4.7 mg/dL (7-18); CREATININE 0.9 mg/dL (0.55-1.3); MAGNESIUM 1.9 mg/dL (1.8-2.4); POTASSIUM 3.4 mmol/L (3.5-5.1); TOT PROT 6.7 g/dl (6.4-8.2)
[2019-12-03] MEDS ORDERED: POTASSIUM CHLORIDE TABS 20 MEQ TABLET.ER (FP) PO ONE (11:04)
--- NOTE | 2019-12-03 11:05 | PN ---
Physical Exam: SUBJECTIVE: Patient sitting up in bed, feels well today, denies any abdominal pain, no nausea or vomiting. had a bm today. OBJECTIVE: repeat abd/pelvis ct for a.m. , npo at midnight. ------- Patient is a 69 year-old female with a past medical history of hypothyroidism and diverticulosis who presented to the ED for evaluation of abdominal x 3 days. patient was found to have acute appendicitis on CT scan with a possible small abscess formation. She was evaluated by IR and no drain was recommended at this time. Patient followed by surgery and currently tolerating a clear liquid diet. Patient for a repeat abd/pelvic CT to further evaluate appendix/ abscess in a.m. Vital Signs Period Temp Pulse Resp BP Sys/Lezama Pulse Ox Last 24 Hr 98.1 F-99.0 F 75-90 18-20 117-135/56-77 96 GENERAL: The patient is awake, alert, and fully oriented, in no acute distress. sitting up in bed. HEAD: Normal with no signs of trauma. EYES: PERRL, extraocular movements intact, sclera anicteric, conjunctiva clear. No ptosis. ENT: Ears normal, nares patent, oropharynx clear without exudates, moist mucous membranes. NECK: Trachea midline, full range of motion, supple. LUNGS: breathing easy and unlabored on room air. ABDOMEN: abdomen soft, non distended, no further abdominal pain - had bm today EXTREMITIES: no edema. NEUROLOGICAL: Normal speech, gait not observed. Laboratory Results - last 24 hr 12/02/19 12/03/19 12/03/19 09:53 09:30 09:30 WBC 8.3 RBC 3.94 Hgb 12.9 Hct 37.6 MCV 95.4 MCH 32.8 MCHC 34.3 RDW 12.6 Plt Count 381 D MPV 8.3 Absolute Neuts (auto) 6.1 Neutrophils % 73.7 Lymphocytes % 19.0 Monocytes % 5.4 Eosinophils % 1.4 Basophils % 0.5 Nucleated RBC % 0 Sodium 140 140 Potassium 3.4 L 3.4 L Chloride 105 108 H Carbon Dioxide 25 24 Anion Gap 10 8 BUN 8.0 4.7 L Creatinine 0.7 0.9 Est GFR (CKD-EPI)AfAm 103.18 76.14 Est GFR (CKD-EPI)NonAf 89.03 65.70 Random Glucose 170 H 155 H Calcium 8.8 9.0 Magnesium 1.8 1.9 Total Bilirubin 0.8 0.4 AST 16 20 ALT 21 25 Alkaline Phosphatase 114 109 Total Protein 6.2 L 6.7 Albumin 2.6 L 2.8 L Active Medications Generic Name Dose Route Start Last Admin Trade Name Freq PRN Reason Stop Dose Admin Heparin Sodium (Porcine) 5,000 unit 11/30/19 22:00 12/03/19 10:18 Heparin - SQ 5,000 unit BID NEHA Administration Piperacillin Sod/Tazobactam 100 mls @ 200 mls/hr 11/29/19 18:00 12/03/19 10: 18 Sod 4.5 gm/ Dextrose IVPB 200 mls/hr Q8H-IV NEHA Administration Protocol Levothyroxine Sodium 25 mcg 12/03/19 07:00 12/03/19 06:47 Synthroid - PO 25 mcg DAILY@0700 NEHA Administration Morphine Sulfate 2 mg 11/29/19 15:38 12/01/19 06:24 Morphine Sulfate IVPUSH 2 mg Q4H PRN Administration PAIN LEVEL 6-10 Potassium Chloride 40 meq 12/03/19 11:04 K-Dur - PO 12/03/19 11:05 ONCE ONE ASSESSMENT/PLAN: Problem List - Problems (1) Appendicitis with abscess Assessment/Plan: Patient presented with an acute appendicitis with an abscess and fecalith/ perforated appencdicitis with abscess. Per IR, no drainable abscess seen on IV Zosyn 4.5 per ID. On clears and tolerating diet without abdominal pain or discomfort. For repeat abdominal abd/ct tomorrow to further evaluate. NPO at midnight. Code(s): K35.33 - ACUTE APPENDICITIS WITH PERF AND LOC PERITONITIS, WITH ABSCS (2) Abdominal pain Assessment/Plan: abdominal pain resolved Code(s): R10.9 - UNSPECIFIED ABDOMINAL PAIN Qualifiers: Abdominal location: generalized Qualified Code(s): R10.84 - Generalized abdominal pain (3) Dehydration Assessment/Plan: on clears. d/c ivf Code(s): E86.0 - DEHYDRATION (4) Nausea & vomiting Assessment/Plan: resolved Code(s): R11.2 - NAUSEA WITH VOMITING, UNSPECIFIED Qualifiers: Vomiting type: unspecified Vomiting Intractability: non-intractable Qualified Code(s): R11.2 - Nausea with vomiting, unspecified (5) DVT prophylaxis Assessment/Plan: heparin bid early ambulation incentive spirometer Code(s): Z29.9 - ENCOUNTER FOR PROPHYLACTIC MEASURES, UNSPECIFIED Visit type - Emergency Visit Emergency Visit: Yes ED Registration Date: 11/28/19 Care time: The patient presented to the Emergency Department on the above date and was hospitalized for further evaluation of their emergent condition. - New Patient This patient is new to me today: No - Critical Care Critical Care patient: No - Discharge Referral Referred to [facility] Med P.C.: No
--- NOTE | 2019-12-03 11:36 | PN ---
Progress Note, Physician History of Present Illness: patient stable improving transfered to elnora - Current Medication List Current Medications: Active Medications Heparin Sodium (Porcine) (Heparin -) 5,000 unit SQ BID [facility] Last Admin: 12/03/19 10:18 Dose: 5,000 unit Piperacillin Sod/Tazobactam (Sod 4.5 gm/ Dextrose) 100 mls @ 200 mls/hr IVPB Q8H-IV NEHA; Protocol Last Admin: 12/03/19 10:18 Dose: 200 mls/hr Levothyroxine Sodium (Synthroid -) 25 mcg PO DAILY@0700 [facility] Last Admin: 12/03/19 06:47 Dose: 25 mcg Morphine Sulfate (Morphine Sulfate) 2 mg IVPUSH Q4H PRN PRN Reason: PAIN LEVEL 6-10 Last Admin: 12/01/19 06:24 Dose: 2 mg - Objective Vital Signs: Vital Signs Temperature 98.7 F 12/03/19 09:43 Pulse Rate 90 12/03/19 09:43 Respiratory Rate 20 12/03/19 09:43 Blood Pressure 117/77 12/03/19 09:43 O2 Sat by Pulse Oximetry (%) 96 12/02/19 21:00 Constitutional: Yes: No Distress, Calm Cardiovascular: Yes: S1, S2 Respiratory: Yes: Regular, CTA Bilaterally Gastrointestinal: Yes: Normal Bowel Sounds, Soft Musculoskeletal: Yes: WNL Extremities: Yes: WNL Neurological: Yes: Alert, Oriented Psychiatric: Yes: Alert, Oriented Labs: CBC, BMP 12/03/19 09:30 12/03/19 09:30 INR, PTT INR 1.10 (0.83-1.09) H 11/30/19 11:05 Assessment/Plan Problem List - Problems (1) Appendicitis with abscess Code(s): K35.33 - ACUTE APPENDICITIS WITH PERF AND LOC PERITONITIS, WITH ABSCS (2) Abdominal pain Code(s): R10.9 - UNSPECIFIED ABDOMINAL PAIN Qualifiers: Abdominal location: generalized Qualified Code(s): R10.84 - Generalized abdominal pain (3) Dehydration Code(s): E86.0 - DEHYDRATION (4) Nausea & vomiting Code(s): R11.2 - NAUSEA WITH VOMITING, UNSPECIFIED Qualifiers: Vomiting type: unspecified Vomiting Intractability: non-intractable Qualified Code(s): R11.2 - Nausea with vomiting, unspecified plan will see what ir does continue abx rest as per the team npo
--- NOTE | 2019-12-03 12:04 | PN ---
Progress Note, Physician History of Present Illness: stable no new issues abd pain better repeat ct scan for tomorrow - Current Medication List Current Medications: Active Medications Heparin Sodium (Porcine) (Heparin -) 5,000 unit SQ BID [facility] Last Admin: 12/03/19 10:18 Dose: 5,000 unit Piperacillin Sod/Tazobactam (Sod 4.5 gm/ Dextrose) 100 mls @ 200 mls/hr IVPB Q8H-IV NEHA; Protocol Last Admin: 12/03/19 10:18 Dose: 200 mls/hr Levothyroxine Sodium (Synthroid -) 25 mcg PO DAILY@0700 [facility] Last Admin: 12/03/19 06:47 Dose: 25 mcg Morphine Sulfate (Morphine Sulfate) 2 mg IVPUSH Q4H PRN PRN Reason: PAIN LEVEL 6-10 Last Admin: 12/01/19 06:24 Dose: 2 mg - Objective Vital Signs: Vital Signs Temperature 98.7 F 12/03/19 09:43 Pulse Rate 90 12/03/19 09:43 Respiratory Rate 12/03/19 09:43 Blood Pressure 117/77 12/03/19 09:43 O2 Sat by Pulse Oximetry (%) 96 12/02/19 21:00 Constitutional: Yes: No Distress, Calm Cardiovascular: Yes: Regular Rate and Rhythm Respiratory: Yes: Regular, CTA Bilaterally Gastrointestinal: Yes: Normal Bowel Sounds, Soft Musculoskeletal: Yes: WNL Extremities: Yes: WNL Neurological: Yes: Alert, Oriented Psychiatric: Yes: Alert, Oriented Labs: CBC, BMP 12/03/19 09:30 12/03/19 09:30 INR, PTT INR 1.10 (0.83-1.09) H 11/30/19 11:05 Assessment/Plan Problem List - Problems (1) Appendicitis with abscess Code(s): K35.33 - ACUTE APPENDICITIS WITH PERF AND LOC PERITONITIS, WITH ABSCS (2) Abdominal pain Code(s): R10.9 - UNSPECIFIED ABDOMINAL PAIN Qualifiers: Abdominal location: generalized Qualified Code(s): R10.84 - Generalized abdominal pain (3) Dehydration Code(s): E86.0 - DEHYDRATION (4) Nausea & vomiting Code(s): R11.2 - NAUSEA WITH VOMITING, UNSPECIFIED Qualifiers: Vomiting type: unspecified Vomiting Intractability: non-intractable Qualified Code(s): R11.2 - Nausea with vomiting, unspecified plan continue abx await for repeat ct scan rest as per the team
[2019-12-03] MEDS ORDERED: oxyCODONE HCL 5 MG TABLET PO PRN ×2 (14:18)
[2019-12-03] MEDS: ACETAMINOPHEN 325 MG TABLET (FP) PO PRN (16:55)
[2019-12-04] MEDS ORDERED: PIPERACILLIN/TAZOBACTAM 4.5 GM VIAL IVPB ONE ×3 (01:13→18:14)
[2019-12-04] MEDS ORDERED: DEXTROSE 5%-WATER 100 ML IVPB ONE ×3 (01:14→18:14)
[2019-12-04] MEDS: PIPERACILLIN/TAZOB 4.5 GM 4.5 GM in DEXTROSE 5%-WATER 100 ML IVPB SCH ×3 (02:17→18:35)
[2019-12-04] MEDS: LEVOTHYROXINE NA 25 MCG TABLET (FP) PO SCH (06:06)
[2019-12-04] MEDS: HEPARIN NA (PORCINE) 5,000 UNITS/ML 1ML VIAL SQ SCH ×2 (10:30→22:26)
[2019-12-04 13:35] LABS: BASO % 0.4 % (0-2.0); EOS % 0.7 % (0-4.5); HEMATOCRIT 34.4 % (32.4-45.2); HEMOGLOBIN 11.9 GM/dL (10.7-15.3); MCH 32.7 pg (25.7-33.7); MCHC 34.5 g/dl (32.0-36.0); MEAN CELL VOLUME 94.9 fl (80-96); MEAN PLT VOLUME 8.2 fl (7.5-11.1); MONO % 5.6 % (3.8-10.2); NEUT % 69.3 % (42.8-82.8); PLATELET COUNT 357 K/MM3 (134-434); RBC 3.62 M/mm3 (3.60-5.2); RDW 12.4 % (11.6-15.6)
[2019-12-04 14:00] LABS: ALBUMIN 2.6 g/dl (3.4-5.0); BILIRUBIN,TOTAL 0.3 mg/dL (0.2-1); CALCIUM 8.6 mg/dL (8.5-10.1); CREATININE 0.7 mg/dL (0.55-1.3); MAGNESIUM 1.8 mg/dL (1.8-2.4); POTASSIUM 3.5 mmol/L (3.5-5.1); TOT PROT 6.1 g/dl (6.4-8.2)
--- NOTE | 2019-12-04 14:16 | PN ---
Progress Note, Physician History of Present Illness: stable ct scan with abscess abscess drained eddie pus - Current Medication List Current Medications: Active Medications Acetaminophen (Tylenol -) 650 mg PO Q6H PRN PRN Reason: pain 1-3 or fever Last Admin: 12/03/19 16:55 Dose: 650 mg Heparin Sodium (Porcine) (Heparin -) 5,000 unit SQ BID [facility] Last Admin: 12/04/19 10:30 Dose: 5,000 unit Piperacillin Sod/Tazobactam (Sod 4.5 gm/ Dextrose) 100 mls @ 200 mls/hr IVPB Q8H-IV [facility]; Protocol Last Admin: 12/04/19 10:30 Dose: 200 mls/hr Levothyroxine Sodium (Synthroid -) 25 mcg PO DAILY@0700 [facility] Last Admin: 12/04/19 06:06 Dose: Not Given Oxycodone HCl (Roxicodone -) 5 mg PO Q4H PRN PRN Reason: PAIN LEVEL 1-5 Oxycodone HCl (Roxicodone -) 10 mg PO Q4H PRN PRN Reason: PAIN LEVEL 6-10 - Objective Vital Signs: Vital Signs Temperature 98.9 F 12/04/19 12:46 Pulse Rate 74 12/04/19 12:46 Respiratory Rate 20 12/04/19 12:46 Blood Pressure 125/71 12/04/19 12:46 O2 Sat by Pulse Oximetry (%) 100 12/04/19 12:17 Constitutional: Yes: No Distress, Calm Cardiovascular: Yes: S1, S2 Respiratory: Yes: Regular, CTA Bilaterally Gastrointestinal: Yes: Normal Bowel Sounds, Soft, Other (drain in place) Musculoskeletal: Yes: WNL Extremities: Yes: WNL Neurological: Yes: Alert, Oriented Psychiatric: Yes: Alert, Oriented Labs: CBC, BMP 12/04/19 12:55 12/04/19 12:55 INR, PTT INR 1.10 (0.83-1.09) H 11/30/19 11:05 Assessment/Plan Problem List - Problems (1) Appendicitis with abscess Code(s): K35.33 - ACUTE APPENDICITIS WITH PERF AND LOC PERITONITIS, WITH ABSCS (2) Abdominal pain Code(s): R10.9 - UNSPECIFIED ABDOMINAL PAIN Qualifiers: Abdominal location: generalized Qualified Code(s): R10.84 - Generalized abdominal pain (3) Dehydration Code(s): E86.0 - DEHYDRATION (4) Nausea & vomiting Code(s): R11.2 - NAUSEA WITH VOMITING, UNSPECIFIED Qualifiers: Vomiting type: unspecified Vomiting Intractability: non-intractable Qualified Code(s): R11.2 - Nausea with vomiting, unspecified plan continue abx await for repeat cx rest as per the team
[2019-12-04] MEDS ORDERED: POTASSIUM CHLORIDE TABS 20 MEQ TABLET.ER (FP) PO ONE (14:24)
--- NOTE | 2019-12-04 15:04 | PN ---
Progress Note, Physician History of Present Illness: Patient seen and examined at bedside. Endorses feeling a bit down. Patient started crying because of how the ID doctor spoke with her. Later admitted her father in this hospital October 02, 2019 which was 2 months ago and it is also making her emotional. Requesting change in ID service. Patient had repeat CT scan today which showed increasing size of abscess from 2.8x1.3cm to 2.9x4.2cm and is now drainable and patient went for drainage this AM with IR. - Current Medication List Current Medications: Active Medications Acetaminophen (Tylenol -) 650 mg PO Q6H PRN PRN Reason: pain 1-3 or fever Last Admin: 12/03/19 16:55 Dose: 650 mg Heparin Sodium (Porcine) (Heparin -) 5,000 unit SQ BID [facility] Last Admin: 12/04/19 10:30 Dose: 5,000 unit Piperacillin Sod/Tazobactam (Sod 4.5 gm/ Dextrose) 100 mls @ 200 mls/hr IVPB Q8H-IV [facility]; Protocol Last Admin: 12/04/19 10:30 Dose: 200 mls/hr Levothyroxine Sodium (Synthroid -) 25 mcg PO DAILY@0700 [facility] Last Admin: 12/04/19 06:06 Dose: Not Given Oxycodone HCl (Roxicodone -) 5 mg PO Q4H PRN PRN Reason: PAIN LEVEL 1-5 Oxycodone HCl (Roxicodone -) 10 mg PO Q4H PRN PRN Reason: PAIN LEVEL 6-10 - Objective Vital Signs: Vital Signs Temperature 98.9 F 12/04/19 12:46 Pulse Rate 74 12/04/19 12:46 Respiratory Rate 20 12/04/19 12:46 Blood Pressure 125/71 12/04/19 12:46 O2 Sat by Pulse Oximetry (%) 100 12/04/19 12:17 Constitutional: Yes: Well Nourished, Other (crying) Eyes: Yes: Conjunctiva Clear, EOM Intact HENT: Yes: Atraumatic Neck: Yes: Supple Cardiovascular: Yes: Regular Rate and Rhythm Respiratory: Yes: WNL, CTA Bilaterally Gastrointestinal: Yes: Normal Bowel Sounds, Soft, Other (DON drain in place.). No: Tenderness Extremities: Yes: WNL Edema: No Psychiatric: Yes: Other (crying see subjective) Labs: CBC, BMP 12/04/19 12:55 12/04/19 12:55 INR, PTT INR 1.10 (0.83-1.09) H 11/30/19 11:05 Problem List - Problems (1) Abdominal pain Assessment/Plan: acute appendicitis which is perforated. now s/p drainage this AM after repeat CTAP showed increasing abscess size. continue Zosyn per ID Patient requesting change in ID service. Discussed with Dr. Shelton who's group will see patient in consultation. No fever or leukocytosis Pain control advance to regular diet Code(s): R10.9 - UNSPECIFIED ABDOMINAL PAIN Qualifiers: Abdominal location: generalized Qualified Code(s): R10.84 - Generalized abdominal pain (2) Appendicitis with abscess Code(s): K35.33 - ACUTE APPENDICITIS WITH PERF AND LOC PERITONITIS, WITH ABSCS (3) DVT prophylaxis Assessment/Plan: heparin subcu Code(s): Z29.9 - ENCOUNTER FOR PROPHYLACTIC MEASURES, UNSPECIFIED (4) Dehydration Assessment/Plan: resolved Code(s): E86.0 - DEHYDRATION (5) Nausea & vomiting Assessment/Plan: resolved Code(s): R11.2 - NAUSEA WITH VOMITING, UNSPECIFIED Qualifiers: Vomiting type: unspecified Vomiting Intractability: non-intractable Qualified Code(s): R11.2 - Nausea with vomiting, unspecified (6) Hypokalemia Assessment/Plan: will give 40meq of PO potassium chloride Code(s): E87.6 - HYPOKALEMIA (7) Hypothyroidism Assessment/Plan: continue synthroid Code(s): E03.9 - HYPOTHYROIDISM, UNSPECIFIED Visit type - Emergency Visit Emergency Visit: Yes ED Registration Date: 11/28/19 Care time: The patient presented to the Emergency Department on the above date and was hospitalized for further evaluation of their emergent condition. - New Patient This patient is new to me today: Yes Date on this admission: 12/04/19 - Critical Care Critical Care patient: No
[2019-12-04] MEDS: ACETAMINOPHEN 325 MG TABLET (FP) PO PRN ×2 (15:36→22:24)
--- NOTE | 2019-12-04 17:58 | PN ---
Progress Note (short form) - Note Progress Note: Second ID consult requested by family 69 yo otherwise healthy female from home admitted 2/7 from home with 3 day history of RLQ pain- started as vomiting, then progressed to RLE pain some chills at home now on day #[address] scan on admission acute appendicitis with abscess she was transferred to [facility] for drainage, IR could not perform ct scan repeated today and she underwent drainage of the abscess 10 cc of pus aspirated, DON placed to continue zosyn day #7 f/u culture results d/w patient and at the bedside d/w dr desir esr/crp in am
[2019-12-05] MEDS ORDERED: PIPERACILLIN/TAZOBACTAM 4.5 GM VIAL IVPB ONE ×3 (02:46→16:56)
[2019-12-05] MEDS ORDERED: DEXTROSE 5%-WATER 100 ML IVPB ONE ×3 (02:47→16:56)
[2019-12-05] MEDS: PIPERACILLIN/TAZOB 4.5 GM 4.5 GM in DEXTROSE 5%-WATER 100 ML IVPB SCH ×3 (02:59→18:04)
--- NOTE | 2019-12-05 06:23 | CONS ---
INFECTIOUS DISEASE CONSULTATION DATE OF CONSULTATION: 12/04/2019 I was asked by Dr. Marlow to assume ID care for this at the patient's request. HISTORY: This is a 69-year-old woman who presented to the emergency room on the with complaints of 3 days of abdominal pain. She had originally started on Saturday with vomiting with some right lower quadrant discomfort. The vomiting resolved, and she continued to have right lower quadrant pain that worsened. She had some chills at night and some sweats. She presented with these complaints to the ER, and she had a CAT scan that showed acute appendicitis with abscess. She was seen by Surgery, and the decision was made to transfer her from [place] to [facility] for IR drainage. IR drainage was not felt to be amenable at that time. She was treated with piperacillin/tazobactam, and CAT scan was repeated today. She was now noted to have a large collection that could be drained. She underwent IR drainage this morning with 10 mL of pus removed. A J-P drain has been placed and has drained 40 mL today. She has no complaints of fevers or chills. She has been afebrile since admission. PAST MEDICAL HISTORY: Notable for a recent diagnosis of hypothyroidism. She has been started on some thyroid medicine by Dr. Fritz this fall. Her past medical history is, otherwise, unremarkable. She has been hospitalized for childbirth, which were all normal spontaneous vaginal deliveries. Otherwise, she has not been hospitalized. There is no history of any antibiotic use. SOCIAL HISTORY: No history of cigarette, alcohol, or substance use. She is . She lives with her . She is retired. ALLERGIES: No known drug allergies. MEDICATIONS: At home include Boniva once a month and Synthroid. REVIEW OF SYSTEMS: As per HPI. She has had no appetite since admission and has been eating poorly. PHYSICAL EXAMINATION: General: She is awake and alert. Vital Signs: Temperature is 98.6, pulse is 79, blood pressure 128/62, respiratory rate is 20, saturating 96% on room air. HEENT: She is normocephalic. Her eyes are anicteric. Neck: Supple. Lungs: Clear to auscultation. Heart: Regular rate and rhythm. Abdomen: Soft. She has a J-P drain that now is draining serous fluid. Extremities: Without edema. DIAGNOSTIC DATA: White count is 7, hemoglobin is 11.9, platelets are 357. BUN 4, creatinine 0.7. LFTs are normal. Cultures from admission were negative. Abscess cultures from today's drainage are pending. In summary, this is a 69-year-old woman with ruptured appendix admitted who is status post drainage. She is now on day 7 of Zosyn. Would continue the same at this point and follow up her cultures. This was discussed with the patient. As well, the cultures may be negative as she has already received a week of antibiotics. We will check a sedimentation rate and CRP as well. Spoke with the patient and her at the bedside as well as Dr. Marlow. MANUEL LINDA M.D. [id number]
[2019-12-05] MEDS: LEVOTHYROXINE NA 25 MCG TABLET (FP) PO SCH (06:25)
[2019-12-05 09:18] LABS: BASO % 0.7 % (0-2.0); EOS % 1.5 % (0-4.5); HEMATOCRIT 36.8 % (32.4-45.2); HEMOGLOBIN 12.9 GM/dL (10.7-15.3); LYMPH % 20.9 % (8-40); MCH 33.3 pg (25.7-33.7); MCHC 34.9 g/dl (32.0-36.0); MEAN CELL VOLUME 95.5 fl (80-96); MEAN PLT VOLUME 8.2 fl (7.5-11.1); MONO % 6.1 % (3.8-10.2); NEUT % 70.8 % (42.8-82.8); PLATELET COUNT 443 K/MM3 (134-434); RBC 3.86 M/mm3 (3.60-5.2); RDW 12.5 % (11.6-15.6); WHITE BLOOD COUNT 7.5 K/mm3 (4.0-10.0)
[2019-12-05 10:00] LABS: BLOOD UREA NITROGEN 4.5 mg/dL (7-18); CALCIUM 9.2 mg/dL (8.5-10.1); CREATININE 0.8 mg/dL (0.55-1.3); MAGNESIUM 1.8 mg/dL (1.8-2.4)
--- NOTE | 2019-12-05 10:20 | PN ---
Progress Note (short form) - Note Progress Note: Attending Surgeon No c/o today; had f/u CT scan yesterday followed by IRD of an abscess. VSS AF T max 99.5 abdo-soft; flat and non tender; drain in place w/minimal output WBC-nl Cultures noted. IMP: improving PLAN: Continue IVAB's as per ID and continue drain; will ultimately required interval laparoscopic appendectomy of which she is aware. Donavon Snowden MD FACS
[2019-12-05] MEDS: HEPARIN NA (PORCINE) 5,000 UNITS/ML 1ML VIAL SQ SCH ×2 (10:46→21:59)
--- NOTE | 2019-12-05 19:21 | PN ---
Progress Note, Physician History of Present Illness: Patient seen and examined at bedside with present. States she feels so much better since changing ID doctors. Drain output decreasing. Cultures from abscess growing lactose fermenting GNB and alpha hemolytic strep. walking and having BM. no abdominal pain or fever. ESR/CRP elevated. - Current Medication List Current Medications: Active Medications Acetaminophen (Tylenol -) 650 mg PO Q6H PRN PRN Reason: pain 1-3 or fever Last Admin: 12/04/19 22:24 Dose: 650 mg Heparin Sodium (Porcine) (Heparin -) 5,000 unit SQ BID [facility] Last Admin: 12/05/19 10:46 Dose: 5,000 unit Piperacillin Sod/Tazobactam (Sod 4.5 gm/ Dextrose) 100 mls @ 200 mls/hr IVPB Q8H-IV [facility]; Protocol Last Admin: 12/05/19 18:04 Dose: 200 mls/hr Levothyroxine Sodium (Synthroid -) 25 mcg PO DAILY@0700 [facility] Last Admin: 12/05/19 06:25 Dose: 25 mcg Oxycodone HCl (Roxicodone -) 5 mg PO Q4H PRN PRN Reason: PAIN LEVEL 1-5 Oxycodone HCl (Roxicodone -) 10 mg PO Q4H PRN PRN Reason: PAIN LEVEL 6-10 - Objective Vital Signs: Vital Signs Temperature 98.7 F 12/05/19 16:00 Pulse Rate 90 12/05/19 16:00 Respiratory Rate 18 12/05/19 16:00 Blood Pressure 124/71 12/05/19 16:00 O2 Sat by Pulse Oximetry (%) 96 12/05/19 10:00 Constitutional: Yes: Well Nourished, Other (crying) Eyes: Yes: Conjunctiva Clear, EOM Intact HENT: Yes: Atraumatic Neck: Yes: Supple Cardiovascular: Yes: Regular Rate and Rhythm Respiratory: Yes: WNL, CTA Bilaterally Gastrointestinal: Yes: Normal Bowel Sounds, Soft, Other (DON drain in place.). No: Tenderness Extremities: Yes: WNL Edema: No Psychiatric: Yes: Other (in good spirits AAOx3) Labs: CBC, BMP 12/05/19 08:26 12/05/19 08:26 INR, PTT INR 1.10 (0.83-1.09) H 11/30/19 11:05 Problem List - Problems (1) Abdominal pain Assessment/Plan: acute appendicitis which is perforated. now s/p drainage on 12/04/2019 after repeat CTAP showed increasing abscess size. continue Zosyn per ID day 7 No fever or leukocytosis Pain controlled well regular diet ESR/CRP elevated will need interval appendectomy Code(s): R10.9 - UNSPECIFIED ABDOMINAL PAIN Qualifiers: Abdominal location: generalized Qualified Code(s): R10.84 - Generalized abdominal pain (2) Appendicitis with abscess Assessment/Plan: Discussed plan with patient about ABx and surgery. all questions answered and concerns addressed. Reassurance given. Cultures from abscess drainage 12/04/2019 growing lactose fermenting GNB and alpha hemolytic strep. ID and sensitivities pending will follow Will need interval appendectomy continue zosyn day 7 Code(s): K35.33 - ACUTE APPENDICITIS WITH PERF AND LOC PERITONITIS, WITH ABSCS (3) DVT prophylaxis Assessment/Plan: heparin subcu Code(s): Z29.9 - ENCOUNTER FOR PROPHYLACTIC MEASURES, UNSPECIFIED (4) Dehydration Assessment/Plan: resolved Code(s): E86.0 - DEHYDRATION (5) Nausea & vomiting Assessment/Plan: resolved Code(s): R11.2 - NAUSEA WITH VOMITING, UNSPECIFIED Qualifiers: Vomiting type: unspecified Vomiting Intractability: non-intractable Qualified Code(s): R11.2 - Nausea with vomiting, unspecified (6) Hypokalemia Assessment/Plan: resolved Code(s): E87.6 - HYPOKALEMIA (7) Hypothyroidism Assessment/Plan: continue synthroid Code(s): E03.9 - HYPOTHYROIDISM, UNSPECIFIED Visit type - Emergency Visit Emergency Visit: Yes ED Registration Date: 11/28/19 Care time: The patient presented to the Emergency Department on the above date and was hospitalized for further evaluation of their emergent condition. - New Patient This patient is new to me today: No - Critical Care Critical Care patient: No
[2019-12-06] MEDS ORDERED: PIPERACILLIN/TAZOBACTAM 4.5 GM VIAL IVPB ONE ×3 (01:29→16:48)
[2019-12-06] MEDS ORDERED: DEXTROSE 5%-WATER 100 ML IVPB ONE ×3 (01:29→16:48)
[2019-12-06] MEDS: PIPERACILLIN/TAZOB 4.5 GM 4.5 GM in DEXTROSE 5%-WATER 100 ML IVPB SCH ×3 (01:42→17:46)
[2019-12-06] MEDS: LEVOTHYROXINE NA 25 MCG TABLET (FP) PO SCH (06:21)
[2019-12-06 09:21] LABS: BASO % 0.6 % (0-2.0); EOS % 1.2 % (0-4.5); HEMATOCRIT 34.9 % (32.4-45.2); HEMOGLOBIN 12.1 GM/dL (10.7-15.3); LYMPH % 19.7 % (8-40); MCH 32.9 pg (25.7-33.7); MCHC 34.7 g/dl (32.0-36.0); MEAN PLT VOLUME 7.9 fl (7.5-11.1); MONO % 7.1 % (3.8-10.2); NEUT % 71.4 % (42.8-82.8); PLATELET COUNT 424 K/MM3 (134-434); RBC 3.68 M/mm3 (3.60-5.2); RDW 12.7 % (11.6-15.6); WHITE BLOOD COUNT 7.3 K/mm3 (4.0-10.0)
[2019-12-06] MEDS: HEPARIN NA (PORCINE) 5,000 UNITS/ML 1ML VIAL SQ SCH (10:05)
[2019-12-06 10:15] LABS: BLOOD UREA NITROGEN 6.6 mg/dL (7-18); CREATININE 0.8 mg/dL (0.55-1.3); MAGNESIUM 2.2 mg/dL (1.8-2.4); PHOSPHOROUS 3.4 mg/dL (2.5-4.9); POTASSIUM 4.1 mmol/L (3.5-5.1)
--- NOTE | 2019-12-06 11:26 | PN ---
Progress Note (short form) - Note Progress Note: Attending Surgeon No c/o today; tolerating a diet VSS AF T max 99.2 abdo-soft; flat and non tender; drain in place w/minimal output WBC-nl Cultures again noted. IMP: improving PLAN: Continue IVAB's as per ID and continue drain; will ultimately required interval laparoscopic appendectomy of which she is aware and will need f/u imaging prior to discharge. Donavon Snowden MD FACS
--- NOTE | 2019-12-06 13:37 | PN ---
Progress Note, Physician History of Present Illness: Patient seen and examined at bedside with present. States she feels great but wants to go home. Drain output 10ml over 24 hours. Cultures from abscess growing E. coli and alpha hemolytic strep. walking and having BM. no abdominal pain or fever. - Current Medication List Current Medications: Active Medications Acetaminophen (Tylenol -) 650 mg PO Q6H PRN PRN Reason: pain 1-3 or fever Last Admin: 12/04/19 22:24 Dose: 650 mg Heparin Sodium (Porcine) (Heparin -) 5,000 unit SQ BID [facility] Last Admin: 12/06/19 10:05 Dose: 5,000 unit Piperacillin Sod/Tazobactam (Sod 4.5 gm/ Dextrose) 100 mls @ 200 mls/hr IVPB Q8H-IV [facility]; Protocol Last Admin: 12/06/19 10:05 Dose: 200 mls/hr Levothyroxine Sodium (Synthroid -) 25 mcg PO DAILY@0700 [facility] Last Admin: 12/06/19 06:21 Dose: 25 mcg Oxycodone HCl (Roxicodone -) 5 mg PO Q4H PRN PRN Reason: PAIN LEVEL 1-5 Oxycodone HCl (Roxicodone -) 10 mg PO Q4H PRN PRN Reason: PAIN LEVEL 6-10 - Objective Vital Signs: Vital Signs Temperature 98.6 F 12/06/19 10:12 Pulse Rate 90 12/06/19 10:12 Respiratory Rate 18 12/06/19 10:12 Blood Pressure 121/64 12/06/19 10:12 O2 Sat by Pulse Oximetry (%) 95 12/05/19 21:00 Constitutional: Yes: Well Nourished Eyes: Yes: Conjunctiva Clear, EOM Intact HENT: Yes: Atraumatic Neck: Yes: Supple Cardiovascular: Yes: Regular Rate and Rhythm Respiratory: Yes: WNL, CTA Bilaterally Gastrointestinal: Yes: Normal Bowel Sounds, Soft, Other (DON drain in place.). No: Tenderness Extremities: Yes: WNL Edema: No Psychiatric: Yes: Other (in good spirits AAOx3) Labs: CBC, BMP 12/06/19 08:22 12/06/19 08:22 INR, PTT INR 1.10 (0.83-1.09) H 11/30/19 11:05 Problem List - Problems (1) Abdominal pain Assessment/Plan: acute appendicitis which is perforated. now s/p drainage on 12/04/2019 after repeat [address]AP showed increasing abscess size. continue Zosyn per ID day 8 Can likely de-escalate ABx therapy based on Cx No fever or leukocytosis Pain controlled well regular diet ESR/CRP elevated will need interval appendectomy in the future repeat CT scan when gen surgery wants to do it Code(s): R10.9 - UNSPECIFIED ABDOMINAL PAIN Qualifiers: Abdominal location: generalized Qualified Code(s): R10.84 - Generalized abdominal pain (2) Appendicitis with abscess Assessment/Plan: Discussed plan with patient about ABx and surgery. all questions answered and concerns addressed. Reassurance given. Cultures from abscess drainage 12/04/2019 growing E.coli and alpha hemolytic strep. sensitive to Zosyn Will need interval appendectomy continue zosyn day 8 f/u ID. Can likely de-escalate ABx therapy Code(s): K35.33 - ACUTE APPENDICITIS WITH PERF AND LOC PERITONITIS, WITH ABSCS (3) DVT prophylaxis Assessment/Plan: heparin subcu Code(s): Z29.9 - ENCOUNTER FOR PROPHYLACTIC MEASURES, UNSPECIFIED (4) Dehydration Assessment/Plan: resolved Code(s): E86.0 - DEHYDRATION (5) Nausea & vomiting Assessment/Plan: resolved Code(s): R11.2 - NAUSEA WITH VOMITING, UNSPECIFIED Qualifiers: Vomiting type: unspecified Vomiting Intractability: non-intractable Qualified Code(s): R11.2 - Nausea with vomiting, unspecified (6) Hypokalemia Assessment/Plan: resolved Code(s): E87.6 - HYPOKALEMIA (7) Hypothyroidism Assessment/Plan: continue synthroid Code(s): E03.9 - HYPOTHYROIDISM, UNSPECIFIED Impression/Plan Impression/Plan: Will give patient a lab holiday tomorrow AM as all routine labs have been WNL Visit type - Emergency Visit Emergency Visit: Yes ED Registration Date: 11/28/19 Care time: The patient presented to the Emergency Department on the above date and was hospitalized for further evaluation of their emergent condition. - New Patient This patient is new to me today: No - Critical Care Critical Care patient: No
--- NOTE | 2019-12-06 17:29 | PN ---
Progress Note, Physician Chief Complaint: AWAKE, ALERT SUPINE IN BED NO C/O ABDOMINAL PAIN TOLERATING SOLID DIET + BM NO FEVER/ CHILLS - Current Medication List Current Medications: Active Medications Acetaminophen (Tylenol -) 650 mg PO Q6H PRN PRN Reason: pain 1-3 or fever Last Admin: 12/04/19 22:24 Dose: 650 mg Enoxaparin Sodium (Lovenox -) 40 mg SQ DAILY [facility] Piperacillin Sod/Tazobactam (Sod 4.5 gm/ Dextrose) 100 mls @ 200 mls/hr IVPB Q8H-IV [facility]; Protocol Last Admin: 12/06/19 10:05 Dose: 200 mls/hr Levothyroxine Sodium (Synthroid -) 25 mcg PO DAILY@0700 [facility] Last Admin: 12/06/19 06:21 Dose: 25 mcg Oxycodone HCl (Roxicodone -) 5 mg PO Q4H PRN PRN Reason: PAIN LEVEL 1-5 Oxycodone HCl (Roxicodone -) 10 mg PO Q4H PRN PRN Reason: PAIN LEVEL 6-10 - Objective Vital Signs: Vital Signs Temperature 98.7 F 12/06/19 14:00 Pulse Rate 92 H 12/06/19 14:00 Respiratory Rate 18 12/06/19 14:00 Blood Pressure 122/60 12/06/19 14:00 O2 Sat by Pulse Oximetry (%) 95 12/06/19 13:00 Constitutional: Yes: No Distress Cardiovascular: Yes: Regular Rate and Rhythm, S1, S2 Respiratory: Yes: CTA Bilaterally Gastrointestinal: Yes: Normal Bowel Sounds, Soft, Other (NO TENDERNESS + DON DRAIN WITH MINIMAL FLUID) Labs: CBC, BMP 12/06/19 08:22 12/06/19 08:22 INR, PTT INR 1.10 (0.83-1.09) H 11/30/19 11:05 Assessment/Plan S/P RUPTURED APPENDIX S/P ABSCESS DRAINAGE CONTINUE ZOSYN DISCUSSED WITH AT BEDSIDE
[2019-12-07] MEDS ORDERED: PIPERACILLIN/TAZOBACTAM 4.5 GM VIAL IVPB ONE ×2 (01:09→09:13)
[2019-12-07] MEDS ORDERED: DEXTROSE 5%-WATER 100 ML IVPB ONE ×2 (01:09→09:14)
[2019-12-07] MEDS: PIPERACILLIN/TAZOB 4.5 GM 4.5 GM in DEXTROSE 5%-WATER 100 ML IVPB SCH ×2 (01:51→09:51)
[2019-12-07] MEDS: LEVOTHYROXINE NA 25 MCG TABLET (FP) PO SCH (06:45)
--- NOTE | 2019-12-07 08:50 | PN ---
Progress Note, Physician Chief Complaint: c/o redness to right flank near drain. Awaiting abx plan and discharge home History of Present Illness: Patient seen and examined at bedside with present. States she feels great but wants to go home. Drain output 10ml over 24 hours. Cultures from abscess growing E. coli and alpha hemolytic strep. walking and having BM. no abdominal pain or fever. - Current Medication List Current Medications: Active Medications Acetaminophen (Tylenol -) 650 mg PO Q6H PRN PRN Reason: pain 1-3 or fever Last Admin: 12/04/19 22:24 Dose: 650 mg Enoxaparin Sodium (Lovenox -) 40 mg SQ DAILY [facility] Piperacillin Sod/Tazobactam (Sod 4.5 gm/ Dextrose) 100 mls @ 200 mls/hr IVPB Q8H-IV [facility]; Protocol Last Admin: 12/07/19 01:51 Dose: 200 mls/hr Levothyroxine Sodium (Synthroid -) 25 mcg PO DAILY@0700 [facility] Last Admin: 12/07/19 06:45 Dose: 25 mcg Oxycodone HCl (Roxicodone -) 5 mg PO Q4H PRN PRN Reason: PAIN LEVEL 1-5 Oxycodone HCl (Roxicodone -) 10 mg PO Q4H PRN PRN Reason: PAIN LEVEL 6-10 - Objective Vital Signs: Vital Signs Temperature 99.7 F H 12/07/19 06:00 Pulse Rate 82 12/07/19 06:00 Respiratory Rate 18 12/07/19 06:00 Blood Pressure 114/63 12/07/19 06:00 O2 Sat by Pulse Oximetry (%) 95 12/06/19 13:00 Constitutional: Yes: Well Nourished, No Distress, Calm Eyes: Yes: WNL, Conjunctiva Clear HENT: Yes: WNL, Atraumatic, Normocephalic Neck: Yes: WNL, Supple, Trachea Midline Cardiovascular: Yes: WNL, Regular Rate and Rhythm Respiratory: Yes: WNL, Regular, CTA Bilaterally Gastrointestinal: Yes: Normal Bowel Sounds, Soft, Other (IR abcess drain to right l) Labs: CBC, BMP 12/06/19 08:22 12/06/19 08:22 INR, PTT INR 1.10 (0.83-1.09) H 11/30/19 11:05 Problem List - Problems (1) Prophylactic measure Code(s): Z29.9 - ENCOUNTER FOR PROPHYLACTIC MEASURES, UNSPECIFIED (2) Abdominal pain Assessment/Plan: acute appendicitis which is perforated. now s/p drainage on 12/04/2019 after repeat CTAP showed increasing abscess size. continue Zosyn per ID day 8 Can likely de-escalate ABx therapy based on Cx No fever or leukocytosis Pain controlled well regular diet ESR/CRP elevated will need interval appendectomy in the future repeat CT scan as per surgery Code(s): R10.9 - UNSPECIFIED ABDOMINAL PAIN Qualifiers: Abdominal location: generalized Qualified Code(s): R10.84 - Generalized abdominal pain (3) Appendicitis with abscess Assessment/Plan: Discussed plan with patient about ABx and surgery. all questions answered and concerns addressed. Reassurance given. Cultures from abscess drainage 12/04/2019 growing E.coli and alpha hemolytic strep. sensitive to Zosyn Will need interval appendectomy continue zosyn day 8 f/u ID. Can likely de-escalate ABx therapy Code(s): K35.33 - ACUTE APPENDICITIS WITH PERF AND LOC PERITONITIS, WITH ABSCS (4) DVT prophylaxis Code(s): Z29.9 - ENCOUNTER FOR PROPHYLACTIC MEASURES, UNSPECIFIED (5) Dehydration Code(s): E86.0 - DEHYDRATION (6) Hypokalemia Code(s): E87.6 - HYPOKALEMIA (7) Hypothyroidism Code(s): E03.9 - HYPOTHYROIDISM, UNSPECIFIED (8) Nausea & vomiting Code(s): R11.2 - NAUSEA WITH VOMITING, UNSPECIFIED Qualifiers: Vomiting type: unspecified Vomiting Intractability: non-intractable Qualified Code(s): R11.2 - Nausea with vomiting, unspecified
[2019-12-07] MEDS ORDERED: ENOXAPARIN NA (PORCINE) 40 MG/0.4 ML DISP.SYRIN SQ SCH (10:00)
[2019-12-07 10:29] LABS: BASO % 0.7 % (0-2.0); EOS % 1.2 % (0-4.5); HEMATOCRIT 38.8 % (32.4-45.2); HEMOGLOBIN 13.1 GM/dL (10.7-15.3); LYMPH % 19.2 % (8-40); MCH 32.9 pg (25.7-33.7); MCHC 33.8 g/dl (32.0-36.0); MEAN CELL VOLUME 97.1 fl (80-96); MEAN PLT VOLUME 8.1 fl (7.5-11.1); MONO % 4.1 % (3.8-10.2); NEUT % 74.8 % (42.8-82.8); PLATELET COUNT 528 K/MM3 (134-434); RBC 3.99 M/mm3 (3.60-5.2); WHITE BLOOD COUNT 7.6 K/mm3 (4.0-10.0)
[2019-12-07 10:56] LABS: BILIRUBIN,TOTAL 0.3 mg/dL (0.2-1); BLOOD UREA NITROGEN 9.6 mg/dL (7-18); CALCIUM 9.1 mg/dL (8.5-10.1); CREATININE 0.9 mg/dL (0.55-1.3); MAGNESIUM 2.3 mg/dL (1.8-2.4); POTASSIUM 4.2 mmol/L (3.5-5.1); TOT PROT 7.3 g/dl (6.4-8.2)
--- NOTE | 2019-12-07 15:34 | PN ---
Progress Note, Physician Chief Complaint: AWAKE, ALERT SUPINE IN BED NO C/O ABDOMINAL PAIN TOLERATING SOLID DIET + BM NO FEVER/ CHILLS REPEAT CT REVIEWED WITH RADIOLOGIST- ABSCESS RESOLVED ASP C/S NOTED - Current Medication List Current Medications: Active Medications Acetaminophen (Tylenol -) 650 mg PO Q6H PRN PRN Reason: pain 1-3 or fever Last Admin: 12/04/19 22:24 Dose: 650 mg Enoxaparin Sodium (Lovenox -) 40 mg SQ DAILY [facility] Last Admin: 12/07/19 09:51 Dose: 40 mg Levothyroxine Sodium (Synthroid -) 25 mcg PO DAILY@0700 [facility] Last Admin: 12/07/19 06:45 Dose: 25 mcg Oxycodone HCl (Roxicodone -) 5 mg PO Q4H PRN PRN Reason: PAIN LEVEL 1-5 Oxycodone HCl (Roxicodone -) 10 mg PO Q4H PRN PRN Reason: PAIN LEVEL 6-10 - Objective Vital Signs: Vital Signs Temperature 98.5 F 12/07/19 10:10 Pulse Rate 92 H 12/07/19 10:10 Respiratory Rate 18 12/07/19 10:10 Blood Pressure 124/70 12/07/19 10:10 O2 Sat by Pulse Oximetry (%) 100 12/06/19 21:00 Constitutional: Yes: No Distress Cardiovascular: Yes: Regular Rate and Rhythm, S1, S2 Respiratory: Yes: CTA Bilaterally Gastrointestinal: Yes: Normal Bowel Sounds, Soft, Other (DON WITH MINIMAL DRAINAGE). No: Tenderness Labs: CBC, BMP 12/07/19 09:46 12/07/19 09:46 INR, PTT INR 1.10 (0.83-1.09) H 11/30/19 11:05 Assessment/Plan S/P RUPTURED APPENDIX S/P ABSCESS DRAINAGE SUBSTITUTE CEFTIN 500MG PO BID + FLAGYL 500MG PO TID X 7D OUTPATIENT SURGICAL FOLLOW UP DISCUSSED WITH AT BEDSIDE
[2019-12-07 15:53] VITALS: BP 114/50; PULSE 98; TEMP 98.3
--- NOTE | 2019-12-07 16:01 | DS ---
Physical Exam: SUBJECTIVE: Patient seen and examined Patient seen and examined at bedside with present. Drain dc'd and placed on oral abx. Plann for appendectomy in 6-8wks with Dr Fontaine OBJECTIVE: Vital Signs Period Temp Pulse Resp BP Sys/Lezama Pulse Ox Last 24 Hr 98.3 F-99.7 F 82-98 18-18 114-139/50-70 99-100 PHYSICAL EXAM GENERAL: The patient is awake, alert, and fully oriented, in no acute distress. HEAD: Normal with no signs of trauma. EYES: PERRL, extraocular movements intact, sclera anicteric, conjunctiva clear. ENT: Ears normal, nares patent, oropharynx clear without exudates, moist mucous membranes. NECK: Trachea midline, full range of motion, supple. LUNGS: Breath sounds equal, clear to auscultation bilaterally, no wheezes, no crackles, no accessory muscle use. HEART: Regular rate and rhythm, S1, S2 without murmur, rub or gallop. ABDOMEN: Soft, nontender, nondistended, normoactive bowel sounds, no guarding, no rebound, no hepatosplenomegaly, no masses. EXTREMITIES: 2+ pulses, warm, well-perfused, no edema. NEUROLOGICAL: Cranial nerves II through XII grossly intact. Normal speech, gait not observed. PSYCH: Normal mood, normal affect. SKIN: Warm, dry, normal turgor, no rashes or lesions noted. LABS Laboratory Results - last 24 hr 12/07/19 12/07/19 09:46 09:46 WBC 7.6 RBC 3.99 Hgb 13.1 Hct 38.8 MCV 97.1 H MCH 32.9 MCHC 33.8 RDW 13.0 Plt Count 528 H D MPV 8.1 Absolute Neuts (auto) 5.7 Neutrophils % 74.8 Lymphocytes % 19.2 Monocytes % 4.1 Eosinophils % 1.2 Basophils % 0.7 Nucleated RBC % 0 Sodium 139 Potassium 4.2 Chloride 104 Carbon Dioxide 26 Anion Gap 9 BUN 9.6 Creatinine 0.9 Est GFR (CKD-EPI)AfAm 76.14 Est GFR (CKD-EPI)NonAf 65.70 Random Glucose 150 H Calcium 9.1 Magnesium 2.3 Total Bilirubin 0.3 AST 20 ALT 33 Alkaline Phosphatase 90 Total Protein 7.3 Albumin 3.0 L HOSPITAL COURSE: Date of Admission:11/28/19 Date of Discharge: 12/07/19 - Problems Abdominal pain/Appendicitis with abscess Assessment/Plan: Resolved acute appendicitis which perforated. now s/p drainage on 12/04/2019 after repeat CTAP showed increasing abscess size. started on Zosyn per ID day-9 days in total No fever or leukocytosis Pain controlled well tolerating regular diet repeat CT scan 12/07 and collection gone-drain removed and placed on PO abx- ceftin and flagyl x 1 additonal week Code(s): R10.9 - UNSPECIFIED ABDOMINAL PAIN Qualifiers: Abdominal location: generalized Qualified Code(s): R10.84 - Generalized abdominal pain Dehydration resolved Code(s): E86.0 - DEHYDRATION Hypokalemia resolved Code(s): E87.6 - HYPOKALEMIA Hypothyroidism c/w home synthroid dose Code(s): E03.9 - HYPOTHYROIDISM, UNSPECIFIED Nausea & vomiting resolved resume home diet Code(s): R11.2 - NAUSEA WITH VOMITING, UNSPECIFIED Qualifiers: Vomiting type: unspecified Vomiting Intractability: non-intractable Qualified Code(s): R11.2 - Nausea with vomiting, unspecified Stable for discharge to home with f/u with Dr Snowden Minutes to complete discharge: 40 Discharge Summary Problems reviewed: Yes Reason For Visit: ABD PAIN, NAUSEA & VOMITING,DEHYDRATION Current Active Problems Abdominal pain (Acute) Appendicitis with abscess (Acute) DVT prophylaxis (Acute) Dehydration (Acute) Hypokalemia (Acute) Hypothyroidism (Acute) Nausea & vomiting (Acute) Prophylactic measure (Acute) Hospital Course: - Problems Abdominal pain/Appendicitis with abscess Assessment/Plan: Resolved acute appendicitis which perforated. now s/p drainage on 12/04/2019 after repeat CTAP showed increasing abscess size. started on Zosyn per ID day-9 days in total No fever or leukocytosis Pain controlled well tolerating regular diet repeat CT scan 12/07 and collection gone-drain removed and placed on PO abx- ceftin and flagyl x 1 additonal week Code(s): R10.9 - UNSPECIFIED ABDOMINAL PAIN Qualifiers: Abdominal location: generalized Qualified Code(s): R10.84 - Generalized abdominal pain Dehydration resolved Code(s): E86.0 - DEHYDRATION Hypokalemia resolved Code(s): E87.6 - HYPOKALEMIA Hypothyroidism c/w home synthroid dose Code(s): E03.9 - HYPOTHYROIDISM, UNSPECIFIED Nausea & vomiting resolved resume home diet Code(s): R11.2 - NAUSEA WITH VOMITING, UNSPECIFIED Qualifiers: Vomiting type: unspecified Vomiting Intractability: non-intractable Qualified Code(s): R11.2 - Nausea with vomiting, unspecified Stable for discharge to home with f/u with Dr Snowden - Instructions Diet, Activity, Other Instructions: DISCHARGE YOUR VISIT You came to the hospital because you developed appendicitis that ruptured. You were placed on antibiotics and drains were placed in the collections to drain out the infection. Yopu were seen by the infectious disease doctor and placed on IV antibiotics for 9 days. The drain was removed on 12/07 and the antibiotics were changed to oral and you were cleared for discharge Dr Snowden from gerernal surgery with take out the appecix in 6-8 weeks MEDICATIONS Please continue to take your home medications as prescribed. There was no changes to home medications NEW Ceftin 500 mg twice a day Flagyl 500mg three times a day DIET Continue your home diet- keep it light for the next week ADDITIONAL CARE Please make an appointment to see your primary care provider, 1 week from today. Keep the dressing on your right side until tomorrow. There may be a small puncture site from the drain-there may be a small amount of drainage. Dont be alarmed. If you notice any drainage place a bandaid over. If there is an unusual about call us. ADDITIONAL INFORMATION Please call 911 or come directly to the emergency department if you experience unusual headache, vision change, shortness of breath, chest pain, numbness, tingling, loss of alertness/awareness, loss of function, unusual bleeding or any alarming symptoms. Thank you for allowing me to care for you. Sherman Gomez, [facility], [facility] [phone] Referrals: Juanpablo Fritz MD [Primary Care Provider] - Donavon Snowden MD [Staff Physician] - Surinder Lindsey MD [Staff Physician] - - Home Medications Comprehensive Discharge Medication List: Ambulatory Orders Ibandronate Sodium [Boniva] 150 mg PO MONTHLY 11/27/19 Levothyroxine [Synthroid -] 25 mcg PO DAILY 11/27/19 Cefuroxime Axetil [Ceftin -] 500 mg PO BID #14 tablet 12/07/19 metroNIDAZOLE [Flagyl -] 500 mg PO TID #21 tablet 12/07/19 Problem List - Problems (1) Prophylactic measure Code(s): Z29.9 - ENCOUNTER FOR PROPHYLACTIC MEASURES, UNSPECIFIED (2) Abdominal pain Code(s): R10.9 - UNSPECIFIED ABDOMINAL PAIN Qualifiers: Abdominal location: generalized Qualified Code(s): R10.84 - Generalized abdominal pain (3) Appendicitis with abscess Code(s): K35.33 - ACUTE APPENDICITIS WITH PERF AND LOC PERITONITIS, WITH ABSCS (4) DVT prophylaxis Code(s): Z29.9 - ENCOUNTER FOR PROPHYLACTIC MEASURES, UNSPECIFIED (5) Dehydration Code(s): E86.0 - DEHYDRATION (6) Hypokalemia Code(s): E87.6 - HYPOKALEMIA (7) Hypothyroidism Code(s): E03.9 - HYPOTHYROIDISM, UNSPECIFIED (8) Nausea & vomiting Code(s): R11.2 - NAUSEA WITH VOMITING, UNSPECIFIED Qualifiers: Vomiting type: unspecified Vomiting Intractability: non-intractable Qualified Code(s): R11.2 - Nausea with vomiting, unspecified This patient is new to me today: Yes Date on this admission: 12/07/19 Emergency Visit: No Critical Care patient: No - Discharge Referral Referred to [facility] Med [facility] No
[2019-12-07] MEDS ORDERED: metroNIDAZOLE 500 MG TABLET PO SCH (22:00)
[2019-12-07] MEDS ORDERED: CEFUROXIME AXETIL 500 MG TABLET PO SCH (22:00)
== END 2019-12-07 17:27 | disposition home or self-care (01) | DRG 372 ==
LOC: FER 20:57 → FM/S 11-28 01:22 → J5S 11-29 15:12
PROVIDERS: ADMIT Internal Medicine; ATTEND Nurse Practitioner Acute Care
PROC: 0D9J30Z Drainage of Appendix with Drainage Device, Percutaneous Approach (ICD-10-PCS; principal; 2019-12-04)
DX: K35.33 Acute appendicitis with perforation, localized peritonitis, and gangrene, with abscess (principal); J98.11 Atelectasis; E03.9 Hypothyroidism, unspecified; E86.0 Dehydration; M81.0 Age-related osteoporosis without current pathological fracture; E87.6 Hypokalemia; R11.2 Nausea with vomiting, unspecified
CPT/HCPCS: 36415; 49406; 74177-TC; 80048; 80053; 81003; 81015; 82150; 83605; 83690; 83735; 84100; 84443; 85025; 85610; 85651; 86140; 87040; 87070; 87075; 87086; 87186; 87205; 99283-25; J0131; J1644; J7030; Q9967

== ENCOUNTER 2020-01-04 08:20 | Day surgery (SDC) | payer OTHER, BC ==
[2020-01-01 12:29] VITALS: BMI 25.8
[2020-01-04] MEDS ORDERED: PROPOFOL 20 ML ONE ×2 (09:52)
[2020-01-04] MEDS ORDERED: SUCCINYLCHOLINE CHLORIDE 200 MG/10 ML SYRINGE ONE (09:52)
[2020-01-04] MEDS ORDERED: ROCURONIUM BROMIDE 50 MG/5 ML SYRINGE ONE ×2 (09:52→10:28)
--- NOTE | 2020-01-04 09:55 | HP ---
History & Physical Update - History History: No Change - Physical Physical: No Change - Assessment Assessment: No Change - Plan Plan: No Change (for interval laparoscopic possible open appendectomy; r/b/t/a's d/w the patient pre-op and informed consent obtained.)
[2020-01-04] MEDS ORDERED: ceFAZolin SODIUM 1 GM VIAL IVPB ONE (10:20)
[2020-01-04] MEDS ORDERED: NEOSTIGMINE METHYLSULFATE 0.5 MG/ML - 10 ML MDV ONE (11:44)
[2020-01-04] MEDS ORDERED: BUPIVACAINE HCL/PF 0.5% (5MG/ML) 10 ML VIAL IJ ONE (12:00)
[2020-01-04] MEDS ORDERED: HYDROmorphone HCL CARPU-JECT 2 MG/1 ML DISP.SYRIN IVPB PRN (12:48)
[2020-01-04] MEDS ORDERED: ONDANSETRON 4 MG/2 ML VIAL IVPUSH PRN (12:50)
--- NOTE | 2020-01-04 12:59 | OP ---
Operative Note - Note: Operative Date: 01/04/20 Pre-Operative Diagnosis: s/p perforated appendicitis w/abscess Operation: interval laparoscopic appendectomy Findings: appendix retrocecal and adhesed to the right lateral abdominal wall; marked f ibrotic and inflammatory reaction. Post-Operative Diagnosis: Same as Pre-op Surgeon: Donavon Snowden Anesthesiologist/MANAGER [employer]: Ke Johnson Anesthesia: General Specimens Removed: appendix Estimated Blood Loss (mls): 25 Drains & Tubes with Location: 10 mm DON
[2020-01-04] MEDS ORDERED: ACETAMINOPHEN 1000 MG/100 ML VIAL (NON FORMULARY) IVPB ONE (13:20)
[2020-01-04] MEDS: HYDROmorphone HCl 2 MG/ML VIAL IVPB PRN ×2 (15:16→20:50)
[2020-01-04] MEDS: LACTATED RINGERS SOLUTION 1,000 ML IV SCH ×2 (16:05→21:24)
[2020-01-05 05:56] VITALS: BP 109/66; PULSE 81; TEMP 98.4
[2020-01-05] MEDS: HYDROmorphone HCl 2 MG/ML VIAL IVPB PRN (07:47)
[2020-01-05 07:54] LABS: BASO % 0.3 % (0-2.0); EOS % 3.7 % (0-4.5); HEMATOCRIT 22.2 % (32.4-45.2); HEMOGLOBIN 7.6 GM/dL (10.7-15.3); LYMPH % 13.2 % (8-40); MCH 31.7 pg (25.7-33.7); MCHC 34.4 g/dl (32.0-36.0); MEAN CELL VOLUME 92.1 fl (80-96); MEAN PLT VOLUME 9.2 fl (7.5-11.1); MONO % 12.6 % (3.8-10.2); NEUT % 70.2 % (42.8-82.8); PLATELET COUNT 135 K/MM3 (134-434); RBC 2.41 M/mm3 (3.60-5.2); RDW 14.6 % (11.6-15.6); WHITE BLOOD COUNT 7.2 K/mm3 (4.0-10.0)
[2020-01-05 08:18] LABS: BLOOD UREA NITROGEN 11.4 mg/dL (7-18); CALCIUM 8.7 mg/dL (8.5-10.1); CREATININE 0.9 mg/dL (0.55-1.3); POTASSIUM 4.2 mmol/L (3.5-5.1)
--- NOTE | 2020-01-05 08:24 | DS ---
Physical Exam: SUBJECTIVE: Patient seen and examined. Doing well. Recovering as expected. OOB to use bedside commode (void). OBJECTIVE: Vital Signs Temperature 98.4 F 01/05/20 05:42 Pulse Rate 81 01/05/20 05:42 Respiratory Rate 18 01/05/20 05:42 Blood Pressure 109/66 01/05/20 05:42 O2 Sat by Pulse Oximetry (%) 98 01/04/20 15:52 PHYSICAL EXAM GENERAL: Alert. NAD. HEAD: NC. AT. NECK: Trachea midline, full range of motion, supple. LUNGS: CTA bilat HEART: RRR ABDOMEN: All surgical ports c/d/i. DON LLQ with minimal serosag output (mostly irrigation). Removed while on rounds EXTREMITIES: 2+ pulses, warm, well-perfused, no edema. PSYCH: Normal mood, normal affect. SKIN: Warm, dry, normal turgor, no rashes or lesions noted. LABS CBC,CMP Sodium 142 mmol/L (136-145) 01/05/20 06:36 Potassium 4.2 mmol/L (3.5-5.1) 01/05/20 06:36 Chloride 106 mmol/L (98-107) 01/05/20 06:36 Carbon Dioxide 30 mmol/L (21-32) 01/05/20 06:36 Anion Gap 7 MMOL/L (8-16) L 01/05/20 06:36 BUN 11.4 mg/dL (7-18) 01/05/20 06:36 Creatinine 0.9 mg/dL (0.55-1.3) 01/05/20 06:36 Est GFR (CKD-EPI)AfAm 76.14 01/05/20 06:36 Est GFR (CKD-EPI)NonAf 65.70 01/05/20 06:36 Random Glucose 88 mg/dL (74-106) 01/05/20 06:36 Calcium 8.7 mg/dL (8.5-10.1) 01/05/20 06:36 HOSPITAL COURSE: Date of Admission:01/04/20 Date of Discharge: 01/05/20 HOSPITAL COURSE: The patient was admitted to the Med-Surg Unit after s/p laprascopic interval appendectomy. The day of surgery, the patient ambulated in her room without assistance. Narcotic and non-narcotic pain management control was achieved with oral and IV pain control. Justina-operative IV ABX were administered in addition to GI prophylaxis. DVT prophylaxis was achieved with SCDs and early ambulation. DON drain was removed POD #1 with tip fully intact. Started on regular diet. The discharge instructions and an oral pain management plan were reviewed with the patient. All questions answered. Above plan discussed with Dr. Snowden and agreed. Minutes to complete discharge: 35 Visit type - Case Type Case Type: Scheduled - New patient This patient is new to me today: Yes Date on this admission: 01/05/20
[2020-01-05 12:02] LABS: PLATELET ESTIMATE DECREASED
--- NOTE | 2020-01-07 15:51 | PATH ---
Surgical Pathology Report Patient Name: IRENA GIBBONS [facility]. Rec. #: [id number] /Age/Gender: 1950 (Age: 69) / F Account: [id number] Location: AMBULATORY SURG Taken: 01/04/2020 Received: 01/04/2020 Reported: 01/07/2020 Physicians: Donavon Snowden MD Specimen(s) Received APPENDIX Clinical History Appendicitis Final Diagnosis APPENDIX, APPENDECTOMY: ACUTE APPENDICITIS AND TRANSMURAL MARKED CHRONIC INFLAMMATION INVOLVING PERIAPPENDICEAL FIBROADIPOSE TISSUE WITH FAT NECROSIS, REACTIVE CHANGE, DYSTROPHIC CALCIFICATION, AND FIBROSIS. Electronically Signed Keven Evans M.D. Gross Description Received in formalin, labeled "appendix," is a 4.8 cm. in length vermiform appendix with a stapled margin of resection and moderate attached fat. The serosa is turpin-kumar and focally hemorrhagic. Sectioning reveals a possibly occluded lumen. The wall of the appendix averages 0.2 cm. in thickness. [employer] sections are submitted in two cassettes. /01/05/2020 [facility]01/05/2020
--- NOTE | 2020-01-18 17:18 | OP ---
DATE OF OPERATION: 01/04/2020 PREOPERATIVE DIAGNOSIS: Status post perforated appendicitis with abscess. POSTOPERATIVE DIAGNOSIS: Status post perforated appendicitis with abscess. PROCEDURE: Interval laparoscopic appendectomy. SURGEON: Donavon Snowden MD ANESTHESIA: General. OPERATIVE FINDINGS: Acute appendicitis and adhesions of the cecum to the right lateral anterior pelvic wall. There was a small amount of clear peritoneal fluid in the pelvis. The rest of the findings are unremarkable. There was a retrocecal appendix that was adhered to the right lateral abdominal wall with a marked fibrotic and inflammatory reaction. There was no evidence of residual abscess and the rest of the findings are unremarkable. PROCEDURE: The patient was placed on the operating table in supine position, and after induction of general anesthesia, the patient's abdomen and pelvis were prepped with ChloraPrep and draped in sterile fashion. Prior to this, a Turpin catheter was inserted, with drainage of clear urine. A timeout was taken and then pneumoperitoneum was established above the umbilicus using a Veress needle to an intraabdominal pressure of 15 mmHg. A 5-mm supraumbilical port was subsequently placed and the patient placed head down with the table turned towards the left position and a suprapubic 12-mm port was placed just to the left of the midline under direct vision and a 5-mm port in the left lower quadrant under direct vision. Laparoscopy was carried out and the previously-noted findings were observed. Using blunt dissection, the cecum and inflammatory omentum over it that were adhered to the right lateral abdominal wall were mobilized using blunt dissection. The tip of the appendix was then identified and grasped and brought from the retrocecal position and the mesoappendix was serially divided using the LigaSure device. The appendix was traced down to its base at the cecum, as identified by the convergence of the 3 teniae on the base of the appendix, and then the 45-mm Endo DAVID purple load stapling device was fired across the base of the appendix. The appendix was then placed in an EndoCatch and brought out through the suprapubic port. Pneumoperitoneum was reestablished and the suture line was noted to be hemostatic. Copious irrigation was carried out using normal saline, and then a 10-mm Jasbir-Way drain placed just lateral to the cecum in the right lower quadrant and the drain was brought out through the lateral 5-mm port site in the left lower quadrant. The drain was secured to the skin there with 2-0 silk suture. Hemostasis was verified again and then all ports were removed under laparoscopic vision without evidence of bleeding from the port sites. The defect at the suprapubic port site was closed with a single [id number] 0 Vicryl suture. All port sites were infiltrated with 0.5% Marcaine and the skin edges reapproximated with 4-0 Monocryl in a subcuticular fashion. Steri-Strips and Band-Aid dressings were placed. The drain was connected to bulb self-suction, the Turpin catheter removed, and the patient aroused from general anesthesia and transferred to the post-anesthesia care unit in stable condition, awake and alert. Estimated blood loss 25 mL. Replacement: Crystalloid. Drains: One 10-mm Jasbir-Way in the right lower quadrant. Specimen: Appendix to Pathology. I, Donavon Snowden, was physically present in the operating room from the time the patient was placed on the operating room table until she was transferred to the post-anesthesia care unit in [place]. MD KRIS Chadwick/[id number]
== END 2020-01-05 11:18 | disposition home or self-care (01) ==
LOC: JASUSAT 08:20 → J6S 15:03 → JASUSAT 01-05 11:18
PROVIDERS: ATTEND Surgery
PROC: 0DTJ4ZZ Resection of Appendix, Percutaneous Endoscopic Approach (ICD-10-PCS; principal; 2020-01-04 11:00)
DX: K35.33 Acute appendicitis with perforation, localized peritonitis, and gangrene, with abscess (principal)
CPT/HCPCS: 36415; 80048; 85025; 94010; 94760; J0131

== ENCOUNTER 2022-02-26 04:44 | Day surgery (SDC) | payer OTHER, BC ==
[2022-02-23 15:43] VITALS: BMI 27.4
[2022-02-26 11:15] VITALS: TEMP 97.3
[2022-02-26 11:54] VITALS: BP 108/58; PULSE 71
== END 2022-02-26 12:27 | disposition home or self-care (01) ==
LOC: JASU-ENDO 04:44
PROVIDERS: ATTEND Internal Medicine Gastroenterology
PROC: 0DJD8ZZ Inspection of Lower Intestinal Tract, Via Natural or Artificial Opening Endoscopic (ICD-10-PCS; principal; 2022-02-26 11:00)
DX: Z12.11 Encounter for screening for malignant neoplasm of colon (principal); K57.30 Diverticulosis of large intestine without perforation or abscess without bleeding; K59.89 Other specified functional intestinal disorders; K64.8 Other hemorrhoids